=== PATIENT | female | born 2000 | race Two or more races ===

== ENCOUNTER → 2018-09-14 13:58 | Outpatient (CLI) | payer SELFPAY ==
[2018-09-14 16:43] LABS: Chlamydia Trachomatis by PCR Negative (Negative); Neisserai gonorrhoeae by PCR Negative (Negative); Probe Check PASS; Sample Adequacy Control PASS; Specimen Processing Control PASS
== END ==
PROVIDERS: Visit Provider Obstetrics & Gynecology
DX: Z12.4 Encounter for screening for malignant neoplasm of cervix (principal); Z11.3 Encounter for screening for infections with a predominantly sexual mode of transmission
CPT/HCPCS: 87491; 87591; 88175; G0145

== ENCOUNTER → 2018-10-13 11:01 | Outpatient (CLI) | payer SELFPAY ==
[2018-10-13 13:38] LABS: Absolute Lymphocyte Count 1.74 X10^3/ul (0.83-4.51); Absolute Neutrophil Count 8.2 X10^3/uL (2.0-7.7); Basophil# 0.01 X10^3/uL; Basophil% 0.1 % (0-1); Color, Urine Yellow (Yellow); Eosinophil# 0.05 X10^3/uL; Eosinophils% 0.5 % (0-5); Glucose, Dipstick Normal (Normal); Hematocrit 35.2 % (37-47); Hemoglobin 12.2 g/dl (12.0-15.0); Ketone-Dipstick Negative (Negative); Leukocyte Esterase-Dipstick Negative /ul (Negative); Lymphocyte # 1.74 X10^3/ul (4.0); Lymphocyte % 16.5 % (19-41); Mean Corp Hgb Conc 34.7 g/gl (32-36); Mean Corpuscular Volume 92.4 fL (81-99); Mean Platelet Vol. 10.4 fl (6.2-12.0); Monocyte# 0.48 X10^3/uL; Monocyte% 4.6 % (0-10); Neutrophil # 8.22 X10^3/uL (2.7-7.7); Neutrophil % 77.9 % (47-70); Nitrite-Dipstick Negative (Negative); Occult Blood-Urine Negative /ul (Negative); Platelet Count 218 K/mm3 (150-450); Protein-Dipstick Negative (Negative); RBC Distribution Width CV 13.2 % (11.6-14.6); RBC Distribution Width SD 43.9 fl (35.1-43.9); Red Blood Count 3.81 M/mm3 (4.2-5.4); Specific Gravity, Urine 1.015 (1.002-1.030); Urine Bilirubin Dipstick Negative (Negative); Urine Clarity Sl. Cloudy (Clear); Urine Urobilinogen Normal (Normal); Urine pH 6.5 (5.0 - 8.0); White Blood Count 10.5 K/mm3 (4.4-11.0)
[2018-10-13 13:41] LABS: POSITIVE COUNT NO; POSITIVE DIFFERENTIAL NO; POSITIVE MORPHOLOGY NO
[2018-10-13 14:35] LABS: HIV - WCH Non-Reactive (Nonreactive); Rubella IgG 10.4 IU/mL
[2018-10-14 10:45] LABS: HEPATITIS B SURFACE AG Negative (Negative); Hep C Antibodies 0.1 s/co ratio (0.0-0.9)
[2018-10-20 01:10] LABS: Prenatal RPR NONREACTIVE (NONREACTIVE)
--- OUTSIDE RECORDS SUMMARY | 2018-12-17 21:16 | XMS RPT_ITS ---
:2000 External Reference #:[id number] Author Organization OHIP Care Team Providers Name Role Phone Pavithra Craig Attending Unavailable Pavithra Craig Attending Unavailable PROBLEMS PROBLEMS DATE TYPE CONDITION / CODE ATTENDING STATUS SOURCE 10/16/2018 Unknown Z34.81 - Kiara Active [facility] Encounter for [facility] supervision of Hospital other normal Repository , first trimester / Z34.81(ICD-10) PROCEDURES PROCEDURES No Procedure Records FoundRESULTS RESULTS URINALYSIS, ROUTINE Collected: 10/13/2018 Status: F Source: [place] (DIPSTICK) 11:10 AM [facility] REPOSITORY Order Comment: How was Urine Obtained? Urine, Random TYPE CODE TESTS RESULT OUT OF RANGE REFERENCE UNITS LAB L400.3000 Yellow COLOR Normal Yellow LAB L400.3050 Clear Normal CLARITY Sl. Cloudy LAB L400.3200 Normal mg/dl Normal GLUCOSE, UR Normal LAB L400.3300 Negative mg/dL Normal BILIRUBIN URINE Negative LAB L400.3400 Negative mg/dl Normal KETONE UR Negative LAB L400.3465 1.002-1.030 Normal SP.GR. DIPSTX 1.015 LAB L400.3550 5.0 - 8.0 pH UR Normal 6.5 LAB L400.3600 Negative mg/dl PROT Normal DIPSTX Negative LAB L400.3700 Normal mg/dl Normal UROBILI Normal LAB L400.3750 Negative Normal NITRITE UR Negative LAB L400.3780 Negative /ul Normal OCCULT BLOOD-UR Negative LAB L400.3800 Negative /ul LEUK Normal ESTERASE Negative Performed By: #### L400.2010 #### [place] [facility] [address] [place], [place], [address] CBC W/DIFF, AUTOMATED Collected: 10/13/2018 Status: F Source: [place] 11:10 AM [facility] REPOSITORY TYPE CODE TESTS RESULT OUT OF RANGE REFERENCE UNITS LAB L100.1000 4.4-11.0 K/mm3 Normal WBC 10.5 LAB L100.1200 4.2-5.4 M/mm3 Low RBC 3.81 LAB L100.1300 12.0-15.0 g/dl Normal HGB 12.2 LAB L100.1400 37-47 % Low HCT 35.2 LAB L100.1500 81-99 fL Normal MCV 92.4 LAB L100.1600 27.0-32.0 pg Normal MCH 32.0 LAB L100.1700 32-36 g/gl Normal MCHC 34.7 LAB L100.1810 11.6-14.6 % Normal RDW CV 13.2 LAB L100.1820 35.1-43.9 fl Normal RDW SD 43.9 LAB L100.1900 150-450 K/mm3 Normal PLT 218 LAB L100.2000 6.2-12.0 fl Normal MPV 10.4 LAB L100.2100 47-70 % High NEUT% 77.9 LAB L100.2200 19-41 % Low LY% 16.5 LAB L100.2300 0-10 % Normal MONO% 4.6 LAB L100.2400 0-5 % Normal EO% 0.5 LAB L100.2500 0-1 % Normal BASO% 0.1 LAB L100.2550 0.0-0.9 % Normal IM GRAN % 0.400 Result Comment: IG% - Immature Granulocytes (promyelocytes, myelocytes and metamyelocytes) > 1% indicates that a LEFT SHIFT is Present. LAB L100.2620 2.0-7.7 X10 3/uL High Absolute Neut 8.2 LAB L100.2720 0.83-4.51 X10 3/ul Normal Absolute Lymph 1.74 Performed By: #### L100.0100 #### [facility] [address] [place], [place], [address] RUBELLA IGG Collected: 10/13/2018 Status: F Source: [place] 11:10 AM [facility] REPOSITORY TYPE CODE TESTS RESULT OUT OF RANGE REFERENCE UNITS LAB L509.4000 IU/mL Normal Rubella IgG 10.4 Result Comment: Antibody results Interpretation of Immune Status < 5 IU/ml Presumed Non-immune 5 - < 10 IU/ml Equivocal > or = 10 IU/ml Presumed Immune Performed By: #### L509.4000, L3890.6005 #### [facility] [address] [place], [place], [address] HIV - [facility] Collected: 10/13/2018 Status: F Source: [place] 11:10 AM [facility] REPOSITORY TYPE CODE TESTS RESULT OUT OF RANGE REFERENCE UNITS LAB L3890.6005 Nonreactive Normal HIV - [facility] Non-Reactive Performed By: #### L509.4000, L3890.6005 #### [facility] [address] [place], [address] T AND S-NO Collected: 10/13/2018 Status: F Source: [place] CHARGE W/PNP 11:10 AM [facility] REPOSITORY Order Comment: Reason for Type AND Screen/Red Cells: Surgery? N TYPE CODE TESTS RESULT OUT OF RANGE REFERENCE UNITS LAB B10.0800 O Normal BLOOD POSITIVE TYPE GEL LAB B100.4050 Normal Ab SCREEN NEGATIVE GEL Performed By: #### B100.7550 #### [facility] [address] [facility] [place], [place], [address] HEPATITIS B SURFACE Collected: 10/13/2018 Status: F Source: [place] AG 11:10 AM [facility] REPOSITORY TYPE CODE TESTS RESULT OUT OF RANGE REFERENCE UNITS LAB L3100.0400 Negative Normal HB Negative SURF AG Result Comment: Performed at: - [facility] [id number] Mailroom Coordinator: Luigi Lazaro PhD, Phone: [phone] Performed By: #### L3100.0390, L3100.0625 #### [facility] (refer to report for specific site) refer to report for address and phone number HEPATITIS C ANTIBODIES Collected: 10/13/2018 Status: F Source: [place] 11:10 AM [facility] REPOSITORY TYPE CODE TESTS RESULT OUT OF RANGE REFERENCE UNITS LAB L3100.0650 0.0-0.9 s/co ratio Normal HEP C AB 0.1 Result Comment: Negative: < 0.8 Indeterminate: 0.8 - 0.9 Positive: > 0.9 The CDC recommends that a positive HCV antibody result be followed up with a HCV Nucleic Acid Amplification test (626569). Performed By: #### L3100.0390, L3100.0625 #### [facility] (refer to report for specific site) refer to report for address and phone number RPR Collected: 10/13/2018 Status: F Source: [place] 11:10 AM [facility] REPOSITORY TYPE CODE TESTS RESULT OUT OF REFERENCE UNITS RANGE LAB L700.5100 NONREACTIVE Normal RPR NONREACTIVE Performed By: #### L700.5100 #### [facility] [address] [place], [address] CT/NG [facility] BY PCR Collected: 09/14/2018 Status: F Source: [place] 2:04 PM [facility] REPOSITORY TYPE CODE TESTS RESULT OUT OF RANGE REFERENCE UNITS LAB L8200.2100 Negative Normal Chlam Negative Trac PCR LAB L8200.2200 Negative Normal NG by Negative PCR Performed By: #### L8200.2000 #### [facility] [address] [facility] [place], [address] PAP TEST I-G Collected: 09/14/2018 Status: F Source: [place] 2:03 PM [facility] REPOSITORY Order Comment: CYTOLOGY INFORMATION: - CLINICAL INFORMATION: - DATE LMP/MENOPAUSE: 07/10/18 LMP - COLLECTION VIAL: Thin Prep Vial - ADJUSTMENT SUPERVISOR SOURCE: CERVICAL/ENDOCERVICAL - COLLECTION TECHNIQUE: BRUSH/SPATULA Specimen Comment: [id number] Specimen Comment: Source.............Cervix;Endocervix Specimen Comment: LMP / Prev Treat...[id number] Specimen Comment: Other.............. Specimen Comment: No. of containers..01 ThinPrep Vial TYPE CODE TESTS RESULT OUT OF RANGE REFERENCE UNITS LAB L7400.0800 . Normal DIAGN Comment Result Comment: NEGATIVE FOR INTRAEPITHELIAL LESION AND MALIGNANCY. LAB L7400.0900 . Normal ADEQ Comment Result Comment: Satisfactory for evaluation. Endocervical and/or squamous metaplastic cells (endocervical component) are present. LAB L7400.1400 . 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 Normal TEST METHOD Comment Result Comment: This liquid based ThinPrep(R) pap test was screened with the use of an image guided system. Performed at: - [facility] [id number] Mailroom Coordinator: Jenifer Baird MD, Phone: [phone] LAB L9205.5517 . Normal . COMM LAB L7400.2700 . Normal PAPSMR Comment Result Comment: The Pap smear is a screening test designed to aid in the detection of premalignant and malignant conditions of the uterine cervix. It is not a diagnostic procedure and should not be used as the sole means of detecting cervical cancer. Both false-positive and false-negative reports do occur. Performed By: #### L7400.0399 #### [facility] (refer to report for specific site) refer to report for address and phone number ALLERGIES ALLERGIES No Allergies Records FoundENCOUNTERS ENCOUNTERS ADMIT/DISCHARGE ACCOUNT ADMITTING ENCOUNTER LOCATION SOURCE NUMBER CLASS 10/13/2018 [id number] Ambulatory [facility] ing:WOBLAB Repository 09/14/[id number] ing:LABSPEC Repository PAYERS PAYERS ENCOUNTER GUARANTOR PAYER SUBSCRIBER SOURCE 10/13/2018 [place] Primary NOT GIVENUNK [place] [id number] SR Insurance:SELF PAY [address] [address]: Number: Effective Repository Date:2018-10-13 (HP) 09/14/2018 COLL[place] Primary NOT GIVENUNK [place] [id number] STATE Insurance:SELF PAY [address], Number: Effective Repository [place] [id number]: Date:2018-09-14 ()
== END ==
PROVIDERS: Visit Provider Obstetrics & Gynecology
DX: Z34.81 Encounter for supervision of other normal pregnancy, first trimester (principal)
CPT/HCPCS: 36415; 81002; 85025; 86703; 86762; 86803; 87340

== ENCOUNTER 2018-12-18 23:00 | Outpatient (CLI) | payer SELFPAY ==
[2018-12-18 23:46] VITALS: BMI 24.0
[2018-12-18 23:46] LABS: Bacteria 0 SEEN /hpf (None Seen); Mucous, Urine 0 SEEN /hpf (<or=2+); Red Blood Cells-Urine 0 SEEN /hpf (0-5); White Blood Cells 0 SEEN /hpf (0-5)
[2018-12-18 23:50] LABS: Color, Urine Yellow (Yellow); Glucose, Dipstick Normal (Normal); Ketone-Dipstick Negative (Negative); Leukocyte Esterase-Dipstick 25 /ul (Negative); Nitrite-Dipstick Negative (Negative); Occult Blood-Urine Negative /ul (Negative); Protein-Dipstick Negative (Negative); Urine Bilirubin Dipstick Negative (Negative); Urine Clarity Clear (Clear); Urine Urobilinogen Normal (Normal)
[2018-12-18 23:57] LABS: Squamous Epithelial Cells - UA 0-5 SEEN /hpf (5-10)
[2018-12-19 00:06] LABS: ROM Internal Control Test YES-OK TO RESULT pt. (Internal QC); ROM Patient Test Negative (Negative); Record Kit Lot#, ROM+ J7836
[2018-12-19] MEDS: Acetaminophen 500 MG Tablet 1000 MG PO (00:17)
--- NOTE | 2018-12-20 09:46 | OB.TRI.HP_ITS ---
History of Present Illness Was patient seen by the physician?: No Reason For Visit: R/O LABOR Date of Service: 12/18/18 Final ALANNA: 04/16/19 Gestational age: 23 Weeks and 0 Days History of Present Illness: 23-week intrauterine who presents with abdominal pain. Patient denies any bleeding, nausea, contractions. Good movement noted. Allergies No Known Allergies Allergy (Verified 12/18/18 23:49) Laboratory Studies: Laboratory Tests 12/18/18 12/18/18 Range/Units 23:40 23:25 Urine Color Yellow (Yellow) Urine Clarity Clear (Clear) Urine pH 7.0 (5.0 - 8.0) Ur Specific [place] 1.010 (1.002-1.030) Urine Protein Negative (Negative) mg/dl Urine Glucose (UA) Normal (Normal) mg/dl Urine Ketones Negative (Negative) mg/dl Urine Occult Blood Negative (Negative) /ul Urine Nitrite Negative (Negative) Urine Bilirubin Negative (Negative) mg/dL Urine Urobilinogen Normal (Normal) mg/dl Ur Leukocyte Esterase 25 H (Negative) /ul Urine RBC 0 SEEN (0-5) /hpf Urine WBC 0 SEEN (0-5) /hpf Ur Squamous Epith Cells 0-5 SEEN (5-10) /hpf Urine Bacteria 0 SEEN (None Seen) /hpf Urine Mucus 0 SEEN (<or=2+) /hpf Vag Amniotic Fld Detect Negative (Negative) NST - FHR Rate Baby A NST Reactive:: Appropriate for gestational age Impression/Plan 23-week gestation with abdominal pain. No contractions noted on monitor. heart tones appropriate for gestational age. Patient was given Tylenol and over approximately an hour the abdominal pain resolved. Likely ligament pain. Return if pain persists or returns, vaginal bleeding, any other symptoms surface. Otherwise see her physician later this week for an appointment in the office.
== END 2018-12-19 01:22 | disposition home or self-care (01) ==
LOC: WPOUT 23:24 → WP 23:24
PROVIDERS: Family Provider Obstetrics & Gynecology; Visit Provider Obstetrics & Gynecology
DX: O26.892 Other specified pregnancy related conditions, second trimester (principal); R10.9 Unspecified abdominal pain; Z3A.23 23 weeks gestation of pregnancy
CPT/HCPCS: 59025; 59050; 81001; 84112; 99218; G0378

== ENCOUNTER → 2019-01-31 | Outpatient (CLI) | payer SELFPAY ==
[2019-01-31 10:56] LABS: Hematocrit 31.6 % (37-47); Mean Corp Hgb Conc 34.8 g/gl (32-36); Mean Corpuscular Hgb 32.1 pg (27.0-32.0); Mean Corpuscular Volume 92.1 fL (81-99); Mean Platelet Vol. 9.9 fl (6.2-12.0); Platelet Count 196 K/mm3 (150-450); RBC Distribution Width CV 12.1 % (11.6-14.6); RBC Distribution Width SD 38.8 fl (35.1-43.9); Red Blood Count 3.43 M/mm3 (4.2-5.4); White Blood Count 12.3 K/mm3 (4.4-11.0)
[2019-01-31 10:58] LABS: Scan Indicated on CBC? Y/N NO
[2019-01-31 11:11] LABS: Glucose Challenge Gest 1H 50g 114 mg/dL (70-140)
== END | disposition home or self-care (01) ==
LOC: WOBLAB 10:11
PROVIDERS: Visit Provider Obstetrics & Gynecology
DX: Z34.83 Encounter for supervision of other normal pregnancy, third trimester (principal)
CPT/HCPCS: 36415; 82950; 85027

== ENCOUNTER → 2019-03-19 | Outpatient (CLI) | payer SELFPAY | END | disposition home or self-care (01) | LOC: LABSPEC 16:49 | PROVIDERS: Visit Provider Obstetrics & Gynecology | DX: Z36.85 Encounter for antenatal screening for Streptococcus B (principal) | CPT/HCPCS: 87081 ==

== ENCOUNTER 2019-04-15 01:56 | Inpatient (IN) | payer SELFPAY ==
[2019-04-15 02:30] VITALS: BMI 28.8
[2019-04-15] MEDS: 0.9% Saline Lock 10 ML Syringe IV (03:12)
[2019-04-15 03:16] LABS: Absolute Lymphocyte Count 2.47 X10^3/uL (0.83-4.51); Absolute Neutrophil Count 15.9 X10^3/uL (2.0-7.7); Basophil# 0.03 X10^3/uL; Basophil% 0.2 % (0-1); Eosinophil# 0.08 X10^3/uL; Eosinophils% 0.4 % (0-5); Hematocrit 30.4 % (37-47); Hemoglobin 10.3 g/dL (12.0-15.0); Lymphocyte # 2.47 X10^3/ul (4.0); Lymphocyte % 12.4 % (19-41); Mean Corp Hgb Conc 33.9 g/dL (32-36); Mean Corpuscular Hgb 28.9 pg (27.0-32.0); Mean Corpuscular Volume 85.4 fL (81-99); Mean Platelet Vol. 11.3 fl (6.2-12.0); Monocyte# 1.34 X10^3/uL; Monocyte% 6.7 % (0-10); NRBC Flagged by Analyzer 0 % (0-5); Neutrophil # 15.85 X10^3/uL (2.7-7.7); Neutrophil % 79.3 % (47-70); Platelet Count 263 K/mm3 (150-450); RBC Distribution Width CV 13.9 % (11.6-14.6); RBC Distribution Width SD 43.2 fl (35.1-43.9); Red Blood Count 3.56 M/mm3 (4.2-5.4)
[2019-04-15] MEDS: Lactated Ringers 1,000 ML 50 ML IV ×6 (03:35→23:46)
[2019-04-15] MEDS: Nalbuphine 10 MG/ML Ampul IV (04:28)
[2019-04-15] MEDS: fentaNYL-bupivacaine (epidural) 100 ML BAG EPIDURAL ×5 (06:41→21:04)
[2019-04-15] MEDS: Ondansetron 4 MG/2 ML Vial IV (08:38)
--- NOTE | 2019-04-15 08:56 | PCM.HP.OB ---
- Problem List (1) 39 weeks gestation of Status: Acute (2) SROM (spontaneous rupture of membranes) Status: Acute History Date of Admission: 04/15/19 Final ALANNA: 04/16/19 Final ALANNA Source: US <20 weeks Gestational age: 39 Weeks and 6 Days History of this : This is a 19 year-old, G [], P [], at 39 weeks gestational age. Allergies No Known Allergies Allergy (Verified 12/18/18 23:49) Home Medications: Home Medications Prenatabs FA 1 tab PO DAILY 12/18/18 Smoking Status: Never smoker Alcohol: None Number of Fetus(es): 1 Heart Tracin, moderate variability, + accelerations, + variable deceleration TOCO Analysis: 2/10 min History Past Pregnancies: Past Pregnancies Delivery Date Name GA/Weeks Outcome Route Weight Infant Gender Labor Length Anesthesia Delivery Location Provider FOB Labs: Labs 04/15/19 02:30 WBC 20.0 H RBC 3.56 L Hgb 10.3 L Hct 30.4 L MCV 85.4 MCH 28.9 MCHC 33.9 RDW Std Deviation 43.2 RDW Coeff of Christine 13.9 Plt Count 263 MPV 11.3 Immature Gran % (Auto) 1.000 H Neut % (Auto) 79.3 H Lymph % (Auto) 12.4 L Castro % (Auto) 6.7 Eos % (Auto) 0.4 Baso % (Auto) 0.2 Absolute Neuts (auto) 15.9 H Absolute Lymphs (auto) 2.47 Absolute Nucleated RBC 0.00 Nucleated RBC % 0 GBS negative 1h GTT 114 mg/dL RPRP nr HCV Ab neg HBsAg neg O positive/Ab negative Rubella immune HIV NR GC/CT neg/neg PAP NILM Expected Delivery Method: Spontaneous Vaginal Review of Systems Constitutional: Denies: Chills Cardiovascular: Denies: Chest Pain Respiratory: Denies: Shortness of Breath Gastrointestinal: Reports: Nausea. Denies: Vomiting Gynecological: Reports: - - contractions. Denies: Vaginal bleeding Physical Exam Vitals: AVSS General: Alert, Oriented x3, Cooperative, No apparent distress HEENT: Atraumatic, Normocephalic Cardiovascular: Regular rate, Regular Rhythm, Normal S1, Normal S2 Lungs: Normal air movement Abdomen: Soft, Non Tender, Non-Distended, Gravid Neurological: Neuro grossly intact Estimated gestational size: Appropriate for gestational size Presentation: Cephalic Cervix Dilation (cm): 4 Station: 0 Effacement (%): 90 Assessment/Plan All Active Problems 39 weeks gestation of (Acute) SROM (spontaneous rupture of membranes) (Acute) This is a 19 year-old, G [1], P [0], at 39 6/7 weeks gestational age with SROM, Cat II FHR -Progressed from 1 to 4cm spontaneously. -Epidural placed -Reviewed with patient risks/benefits labor and delivery including risks associated with section. Consents signed. -Discussed PPBC - LARC declined. - status overall reassuring -Will continue expectant management
[2019-04-15] MEDS: Acetaminophen 325 MG Tablet PO ×2 (15:17→20:34)
--- NOTE | 2019-04-15 15:46 | PCM.PN.BLA ---
Progress Note LABOR PROGRESS NOTE Wishes baby were here already. Tm/c 102.1 GEN - NAD, AAO x 3 FHR 160, moderate variability, + accelerations, + variable deceleration TOCO 3/10 min SVE 7/90/-1 by my exam, cephalic A/P: 19yo G1 @ 39 6/7wga in labor, Cat II FHR with suspected triple I -APAP given. Ampicillin, Gentamicin ordered. Reviewed with patient indications, r/b abx. -Continue in labor - if cervix unchanged in 1 hour will start pitocin.
[2019-04-15] MEDS: Oxytocin 30 units/NS 500 ml 30 UNITS/500 ML IV.SOLN IV (22:57)
[2019-04-16] VITALS (19 sets, daily range): BP systolic 102–129; BP diastolic 52–86; PULSE 77–107; RESP 12–19; TEMP 36.7–37.7; O2SAT 89–97
--- NOTE | 2019-04-16 01:05 | PCM.PN.BLA ---
Progress Note LABOR PROGRESS NOTE Comfortable with epidural. AVSS GEN - NAD, AAO x 3 FHR 140, moderate variability, + 10 x 10 acecleration, + variable deceleration TOCO 2-3/10 min SVE FD/+1 station, cephalic, BESSIE, asynclitic A/P: 19yo G1 @ 40wga in labor, Cat II FHR -IUPC placed, amnioinfusion started -Will reassess after additional 30 min pushing
--- NOTE | 2019-04-16 01:33 | PCM.PN.BLA ---
Progress Note LABOR PROGRESS NOTE FHR 135, minimal variability, no accelerations, + variable decelerations TOCO 2/10 min SVE 10/+1 station, unchanged from prior, negative Brian Hilary maneuver A/P: 19yo G1 @ 40wga in labor with arrest of descent, Cat II FHR -Maternal repositioning and O2 supplementation -Pushing > 2 hours overall with no change in station and variable decelerations. -Will proceed with C/S. C/S r/b/i reviewed. Pt and spouse given opportunity to ask questions and questions answered to her satisfaction.
[2019-04-16] MEDS: Sodium Citrate/Citric Acid 30 ML UDC PO (01:38)
[2019-04-16] MEDS: Cefazolin 2 GM in 0.9% Normal Saline 100 ML IV (01:45)
[2019-04-16] MEDS: Oxytocin 30 units/NS 500 ml 30 UNITS/500 ML IV.SOLN 167 UNITS IV (02:15)
--- NOTE | 2019-04-16 03:06 | PCM.OPRPT ---
Problem List (1) SROM (spontaneous rupture of membranes) Status: Acute (2) 40 weeks gestation of Status: Acute Delivery Classification: BLANQUITA Final ALANNA: 04/16/19 Final ALANNA Source: US <20 weeks Gestational age: 40 Weeks and 0 Days doctor who attended delivery (if requested by OB): Alannah Pike Indications: 19yo G1 @ 40 weeks gestational age who presented in labor with SROM. She progressed to FD/+1 station without additional descent having a Cat II FHR with variable decelerations. section r/b/i/a were reviewed and patient agreed to proceed. Indications for : Arrrest of Descent Description of Procedure: Patient was taken to the operating room and sign in performed. Vaginal prep performed. Her epidural was found not be adequate however thus general anesthesia was planned. The abdomen was prepped and draped in sterile fashion. The patient was induced under general anesthesia and intubated. A Pfannenstiel incision was made. The rectus muscles were bluntly at the midline and the peritoneum entered bluntly. The peritoneal incision was extended and bladder blade placed into the abdomen. A low transverse hysterotomy was made using Metzenbaum scissors. The hysterotomy was extended bluntly cephalad and caudad. The head was notably asynclitic and OP. The head was elevated and delivered. A nuchal cord x 1 was reduced. A male infant delivered. The cord was doubly clamped and cut and the infant passed to the awaiting nursery personnel and Pediatric Hospitalist. The placenta was expressed from the uterus. The uterus was exteriorized and cleared of debris. The hysterotomy was repaired using 0 Vicryl running locked suture. A second imbricating layer was placed horizontally. There was some oozing at the left apex that was controlled using compression with excellent hemostasis. The posterior culdesac was cleared of debris. Bleeding from bullous serosa on the posterior uterus was controlled using the Bovie. The uterus and adnexa were returned to the abdomen. The bladder blade repositioned and hysterotomy again inspected with hemostasis maintained. The peritoneum was reapproximated using 2-0 Vicryl. The Rectus fascia was reapproximated using 0-Stratafix. Small capillary bleeds in the subcutaneous tissue were electrocoagulated using the Bovie. The subcutaneous tissue and skin were reapproximated with 2-0 Vicry and 4-0 Vicryl, respectively, by the RADIO JOURNALIST under my supervision. Mepilex was placed over the incision. The patient was awakened, extubated and transferred to the recovery room without complication. Sponge and needle counts were correct x 2. Amniotic Membrane Rupture Type: Spontaneous Amniotic Fluid Description: Clear Placenta Disposition: Sent to Pathology Specimen(s) sent to pathology: placenta Drain: Rollins to straight drain Cord Entanglement: Around neck x 1, loose Nuchal Cord Compression: With compression Cord Vessel Description: 3 Vessels Esitmated Blood Loss (ml): 500 Infant Gender: Male (1 minute): 2 (5 minute): 9 Delayed cord clamping: No Pre-op Antibiotic Given: - - Azithromycin 500mg, Ancef 2g Pt instructed on risks of surgery: Bleeding, Anesthesia Risks, Infection, Injury to surrounding structure(s) including bowel and bladder Complications: None - Admit VTE Documentation VTE Present on Admission: No VTE Mechan Device Prophylaxis: SCD's VTE Pharm Prophylaxis ordered?: No
[2019-04-16] MEDS: HYDROmorphone 1 MG/ML Syringe IV ×2 (04:09→07:35)
--- NOTE | 2019-04-16 05:51 | PLAC_PTH ---
PATIENT: COLLIN CHAWLA LOC: WP U#:[id number] AGE/SX: ROOM: [id number] RE04/15/[address]: Dr. Pavithra Hargrove MD : 2000 BED: 2 DIS: 04/19/2019 SPEC #: [id number] RECD: 04/16/19 09:48 STATUS: AMOR NEWMANAna Maria #: [id number] CAR: 04/16/19 05:[address]: Pavithra Cian DEPT: SURGICAL PATHOLOGY RECD BY: Chato Mackey ENTERED: 04/16/19 12:34 SP TYPE: PLACENTA OTHR DR: No Primary Care Phys Tissues: Placenta, NOS Procedures: Surgery Specimen Level V HEADER OPERATION: Primary section PRE-OP DIAGNOSIS: 40 wga, meconium, suspected triple I TISSUE SUBMITTED: Placenta MICROSCOPIC DIAGNOSIS Placenta: Placental disc - third trimester placenta (442 gm). - Focal area of fibrinous exudation (2 cm in greatest dimension). Membranes - moderate to marked acute chorioamnionitis. - Pigment laden macrophages consistent with meconium staining. Umbilical cord - three blood vessels and moderate acute funisitis. SJ:martina 04/18/19 MICROSCOPIC DESCRIPTION Slides are reviewed. GROSS DESCRIPTION SPECIMEN: PLACENTA / CLINICAL INFORMATION: A. Weight: 3.503 kg B. Gestational Age: 40 weeks C. Sex: Male PLACENTAL WEIGHT (POST FIXATION): 442 gm PLACENTAL DIMENSIONS: 16 x 15 x 3.5 cm PLACENTAL SHAPE: Usual ovoid PLACENTAL WEIGHT FOR GESTATIONAL AGE: Within 10-99th percentile MEMBRANES - Present A. Insertion: Marginal B. Site of rupture from edge: 5 cm from edge of placental disc C. Color of membrane: Mancilla-greenish, mucoidy consistent with meconium staining. D. Abnormalities: None UMBILICAL CORD - Present A. Color: Mancilla-ernandez B. Insertion: Paracentral C. Length: 27 cm D. Diameter: 1.1 cm E. Number of vessels: Three F. Abnormalities: None PLACENTAL DISC - Present A. Color of surface: Mancilla-green consistent with meconium staining. B. surface abnormalities: None C. Maternal cotyledons: Intact with minimal tears D. Attached retro placental clot: No clot E. Cut surface: Dark red and spongy F. Lesions: Sections reveal a mancilla, indurated area measuring 2 x 1 x 1 cm. G. Separate clot: Absent SECTIONS SUBMITTED: 1. Membrane roll 2. Cord, maternal end 3. Cord, end 4. Placental disc, and maternal surfaces, lesion 5. Placental disc, and maternal surfaces 6. Placental disc, and maternal surfaces PERRY:martina 04/17/19 TC:2 CPT: 03088
--- NOTE | 2019-04-16 08:35 | PCM.PN.BLA ---
Progress Note Patient seen and without complaints on day of surgery s/p PLTCS. Reports pain controlled and has good appetite, eating breakfast. AVSS, GEN - NAD. Plan routine postop care. .
--- NOTE | 2019-04-16 08:37 | NURSING ---
Patient's nipple cream at the bedside.
--- NOTE | 2019-04-16 08:39 | NURSING ---
Indwelling maldonado catheter present. WNL.
[2019-04-16] MEDS: 0.9% Saline Lock 10 ML Syringe IV ×3 (08:42→20:23)
[2019-04-16] MEDS: Ketorolac 30 MG/ML Syringe IV ×3 (08:42→20:23)
[2019-04-16] MEDS: Senna/Docusate Sodium 1 Tablet PO (08:43)
[2019-04-16] MEDS: Lactated Ringers 1,000 ML 100 ML IV (09:22)
[2019-04-16] MEDS: Acetaminophen 500 MG Tablet 1000 MG PO (10:17)
[2019-04-16] MEDS: oxyCODONE 5 MG Tablet PO ×3 (12:53→23:44)
--- NOTE | 2019-04-16 16:00 | NURSING ---
Ice pack applied.
--- NOTE | 2019-04-16 18:23 | NURSING ---
Patient stood up and ambulated to chair with assistance x2. Tolerated well. Sitting up in chair with breast gel pads. Reports that she feels good sitting in the chair. Incentive spirometry encouraged. Denies further needs at this time.
[2019-04-17 00:20] VITALS: BP 123/73; PULSE 85; RESP 18; TEMP 37.2
[2019-04-17] MEDS: Ketorolac 30 MG/ML Syringe IV ×4 (02:32→20:31)
[2019-04-17] MEDS: 0.9% Saline Lock 10 ML Syringe IV ×4 (02:33→20:31)
[2019-04-17 04:15] VITALS: BP 109/57; PULSE 81; RESP 18; TEMP 37.1
[2019-04-17 04:57] LABS: Hematocrit 26.8 % (37-47); Hemoglobin 9.3 g/dL (12.0-15.0); Mean Corp Hgb Conc 34.7 g/dL (32-36); Mean Corpuscular Hgb 29.3 pg (27.0-32.0); Mean Corpuscular Volume 84.5 fL (81-99); Mean Platelet Vol. 10.7 fl (6.2-12.0); Platelet Count 225 K/mm3 (150-450); RBC Distribution Width CV 14.6 % (11.6-14.6); RBC Distribution Width SD 44.9 fl (35.1-43.9); Red Blood Count 3.17 M/mm3 (4.2-5.4); White Blood Count 25.6 K/mm3 (4.4-11.0)
[2019-04-17] MEDS: Senna/Docusate Sodium 1 Tablet PO (07:07)
[2019-04-17] MEDS: oxyCODONE 5 MG Tablet PO ×4 (07:07→18:57)
--- NOTE | 2019-04-17 08:30 | PCM.PN.OB ---
Patient Problems: Active and Suspected Problems 39 weeks gestation of (Acute) SROM (spontaneous rupture of membranes) (Acute) 40 weeks gestation of (Acute) Subjective: No issues overnight. Pain minimal. OOB. No flatus yet. TOlerates PO. Objective: avss - Physical Exam General: Alert, Oriented x3, Cooperative, No apparent distress HEENT: Atraumatic, Normocephalic Lungs: Clear to auscultation, Normal air movement Cardiovascular: Regular rate, Regular Rhythm, Normal S1, Normal S2 Abdomen: Bowel Sounds Present, Soft, Non Tender, Non-Distended, - - fundus firm and nontender, lochia scant, incisional dressing c/d/i Extremities: No edema, No Calf Tenderness Neurological: Neuro grossly intact Psych/Mental Status: Normal Affect, Appropriate, Alert and oriented to time, place, person, mood and affect Vital Signs Temp Pulse Resp BP Pulse Ox 98.0 F 66 16 112/56 L 97 04/18/19 02:39 04/18/19 02:39 04/18/19 02:39 04/18/19 02:39 04/17/19 20:36 Oxygen Delivery Method Room Air Weight: 66.678 kg Body Mass Index (BMI) 28.8 Intake and Output for Last 24 Hours 04/16/19 04/17/19 04/18/19 23:59 23:59 23:59 Intake Total 4217 / 4217 1500 / 1500 Output Total 4450 / 4450 3550 / 3550 Balance -233 / -233 -2049 / -2049 Medical Necessity - Tobacco Use Smoking Status: Never smoker Assessment/Plan All Active Problems 39 weeks gestation of (Acute) SROM (spontaneous rupture of membranes) (Acute) 40 weeks gestation of (Acute) This is a 19 year-old, G [1], P [1] POD#1 s/p PLTCS doing well. -Rh positive -Routine postop care
[2019-04-17 09:30] VITALS: BP 113/64; PULSE 78; RESP 16; TEMP 36.7
[2019-04-17 13:45] VITALS: BP 117/72; PULSE 74; RESP 16; TEMP 36.9
[2019-04-17 20:36] VITALS: BP 121/64; PULSE 80; RESP 16; TEMP 37; O2SAT 97
[2019-04-18] MEDS: 0.9% Saline Lock 10 ML Syringe IV (02:32)
[2019-04-18] MEDS: Ketorolac 30 MG/ML Syringe IV (02:32)
[2019-04-18 02:39] VITALS: BP 112/56; PULSE 66; RESP 16; TEMP 36.7
[2019-04-18 08:00] VITALS: BP 117/66; PULSE 88; RESP 14; TEMP 36.7
[2019-04-18] MEDS: Naproxen 250 MG Tablet PO (08:55)
--- NOTE | 2019-04-18 09:05 | PCM.PN.OB ---
Patient Problems: Active and Suspected Problems 39 weeks gestation of (Acute) SROM (spontaneous rupture of membranes) (Acute) 40 weeks gestation of (Acute) Subjective: Patient without complaints. Tolerating diet well. Positive flatus. Tenderness less today than yesterday. Minimal vaginal bleeding. Baby needs to stay until tomorrow. - Physical Exam Vital Signs Temp Pulse Resp BP Pulse Ox 98.0 F 66 16 112/56 L 97 04/18/19 02:39 04/18/19 02:39 04/18/19 02:39 04/18/19 02:39 04/17/19 20:36 Oxygen Delivery Method Room Air Weight: 147 lb Body Mass Index (BMI) 28.8 Intake and Output for Last 24 Hours 04/16/19 04/17/19 04/18/19 23:59 23:59 23:59 Intake Total 4217 / 4217 1500 / 1500 Output Total 4450 / 4450 3550 / 3550 Balance -233 / -233 -2049 / -2049 Wound covered with Mepilex dressing but without any bleeding noted on pad. Hemoglobin okay. White count slightly elevated. Medical Necessity - Tobacco Use Smoking Status: Never smoker Assessment/Plan All Active Problems 39 weeks gestation of (Acute) SROM (spontaneous rupture of membranes) (Acute) 40 weeks gestation of (Acute) Doing well postoperative day #2 status post primary section. Continuing present care. Will repeat CBC tomorrow to confirm white count is dropping.
[2019-04-18] MEDS: oxyCODONE 5 MG Tablet PO ×2 (13:23→22:21)
[2019-04-18 13:24] VITALS: BP 117/72; PULSE 67; RESP 12; TEMP 36.5; O2SAT 99
--- NOTE | 2019-04-18 19:47 | DCINST_ITS ---
Discharge Diet: No Restrictions Discharge Activity: Return to Normal Activity, May Shower May resume sexual activity in: 4-6 weeks Lifting Restrictions: 10 lb Suture Line Care: Avoid Pulling/Pushing Cleanse incision/area with: Soap & Water Additional Instructions: If you experience any of the following, contact your healthcare provider. * Bleeding that soaks a pad every hour for 2 hours * Fever 100.4 or higher * Unrelieved incision or abdominal pain * Swelling, redness, discharge or bleeding from your incision or episiotomy site * Your incision begins to separate * Problems urinating (including inability to urinate or burning while urinating). * Visual changes * Severe headache * Flu-like symptoms * Pain or redness in one of both of your breasts * Pain, warmth, tenderness or swelling in your legs, especially the calf area * Frequent nausea and vomiting * Symptoms of depression or anxiety If you experience any of the following, call 911 or go to the nearest Emergency Room. * Chest pain * Problems breathing * Seizure activity * Partial or complete paralysis of a body part, slurred speech, weakness or drooping of the face, or a sudden inability to walk or hold your balance Allergies/Adverse Reactions: Allergies No Known Allergies Allergy (Verified 12/18/18 23:49) Medications to take at Discharge Prenatabs FA 1 tab PO DAILY 12/18/18 Naproxen [Naprosyn] 1 - 2 tab PO Q12H PRN #30 tab 04/18/19 Oxycodone [Oxyir] 1 - 2 tab PO Q6H PRN PRN 7 Days #20 tab 04/18/19 Senna/Docusate Sodium [Senokot-S] 1 - 2 tab PO DAILY PRN #60 tab 04/18/19 The following prescriptions were given: Naproxen [Naprosyn] 1 - 2 tab PO Q12H PRN #30 tab PRN Reason: Mild Pain (1-12/03) [id number] Oxycodone [Oxyir] 1 - 2 tab PO Q6H PRN PRN 7 Days #20 tab PRN Reason: Mod-Severe Pain (-07/05) Transmission Status: [id number] Senna/Docusate Sodium [Senokot-S] 1 - 2 tab PO DAILY PRN #60 tab PRN Reason: Constipation Transmission Status: Received by [id number] Follow-Up: Call to make an appointment with your doctor for an incision check in 1-2 weeks. You will also need a 6 week post- follow up appointment. Test results from this visit will be discussed in further detail at your follow- up appointment, if applicable. Please Follow Up With: Pavithra Craig MD When: 1-2 weeks Primary Care Physician: Care Physician,No Primary [Primary Care Provider] -
--- NOTE | 2019-04-18 19:47 | PCM.DCCSEC ---
Discharge Diet: No Restrictions Discharge Activity: Return to Normal Activity, May Shower May resume sexual activity in: 4-6 weeks Lifting Restrictions: 10 lb Suture Line Care: Avoid Pulling/Pushing Cleanse incision/area with: Soap & Water Additional Instructions: If you experience any of the following, contact your healthcare provider. Bleeding that soaks a pad every hour for 2 hours Fever 100.4 or higher Unrelieved incision or abdominal pain Swelling, redness, discharge or bleeding from your incision or episiotomy site Your incision begins to separate Problems urinating (including inability to urinate or burning while urinating). Visual changes Severe headache Flu-like symptoms Pain or redness in one of both of your breasts Pain, warmth, tenderness or swelling in your legs, especially the calf area Frequent nausea and vomiting Symptoms of depression or anxiety If you experience any of the following, call 911 or go to the nearest Emergency Room. Chest pain Problems breathing Seizure activity Partial or complete paralysis of a body part, slurred speech, weakness or drooping of the face, or a sudden inability to walk or hold your balance Allergies/Adverse Reactions: Allergies No Known Allergies Allergy (Verified 12/18/18 23:49) Medications to take at Discharge Prenatabs FA 1 tab PO DAILY 12/18/18 Naproxen [Naprosyn] 1 - 2 tab PO Q12H PRN #30 tab 04/18/19 Oxycodone [Oxyir] 1 - 2 tab PO Q6H PRN PRN 7 Days #20 tab 04/18/19 Senna/Docusate Sodium [Senokot-S] 1 - 2 tab PO DAILY PRN #60 tab 04/18/19 The following prescriptions were given: Naproxen [Naprosyn] 1 - 2 tab PO Q12H PRN #30 tab PRN Reason: Mild Pain (1-12/03) Transmission Status: Received by [facility] Oxycodone [Oxyir] 1 - 2 tab PO Q6H PRN PRN 7 Days #20 tab PRN Reason: Mod-Severe Pain (-07/05) Transmission Status: Received by [facility] Senna/Docusate Sodium [Senokot-S] 1 - 2 tab PO DAILY PRN #60 tab PRN Reason: Constipation Transmission Status: Received by [facility] Follow-Up: Call to make an appointment with your doctor for an incision check in 1-2 weeks. You will also need a 6 week post- follow up appointment. Test results from this visit will be discussed in further detail at your follow-up appointment, if applicable. Please Follow Up With: Pavithra Craig MD When: 1-2 weeks Primary Care Physician: Care Physician,No Primary [Primary Care Provider] -
[2019-04-18 22:20] VITALS: BP 147/68; PULSE 79; RESP 16; TEMP 36.6; O2SAT 99
[2019-04-19 02:30] VITALS: BP 126/72; PULSE 72; RESP 16; TEMP 36.6
[2019-04-19 04:45] LABS: Absolute Lymphocyte Count 2.31 X10^3/uL (0.83-4.51); Absolute Neutrophil Count 9.8 X10^3/uL (2.0-7.7); Absolute Nucleated RBC Count 0.02 10^3/uL (0-5); Basophil# 0.03 X10^3/uL; Basophil% 0.2 % (0-1); Eosinophil# 0.46 X10^3/uL; Eosinophils% 3.4 % (0-5); Hematocrit 25.7 % (37-47); Hemoglobin 8.7 g/dL (12.0-15.0); Lymphocyte # 2.31 X10^3/ul (4.0); Lymphocyte % 16.9 % (19-41); Mean Corp Hgb Conc 33.9 g/dL (32-36); Mean Corpuscular Volume 85.7 fL (81-99); Mean Platelet Vol. 10.2 fl (6.2-12.0); Monocyte# 0.83 X10^3/uL; Monocyte% 6.1 % (0-10); NRBC Flagged by Analyzer 0.1 % (0-5); Neutrophil # 9.81 X10^3/uL (2.7-7.7); Neutrophil % 71.7 % (47-70); Platelet Count 232 K/mm3 (150-450); RBC Distribution Width CV 14.4 % (11.6-14.6); RBC Distribution Width SD 44.8 fl (35.1-43.9); White Blood Count 13.7 K/mm3 (4.4-11.0)
--- NOTE | 2019-04-19 07:51 | PN.OBGYN_ITS ---
Patient Problems: Active and Suspected Problems delivery delivered (Acute) 39 weeks gestation of (Acute) SROM (spontaneous rupture of membranes) (Acute) 40 weeks gestation of (Acute) Subjective: Had bowel movement x 2. Ambulating without difficulty. Reports a rash on sides of abdomen. Denies fever, chills, itching. Objective: AVSS - Physical Exam General: Alert, Oriented x3, Cooperative, No apparent distress HEENT: Atraumatic, Normocephalic Lungs: Normal air movement Cardiovascular: Regular rate, Regular Rhythm, Normal S1, Normal S2 Abdomen: Soft, Non Tender, Non-Distended, - - Fundus firm and nontender, incisional dressing c/d/i; fine papular eruption confined to abdomen with mild erythema Extremities: No edema, No Calf Tenderness Neurological: Neuro grossly intact Psych/Mental Status: Normal Affect, Appropriate, Alert and oriented to time, place, person, mood and affect Vital Signs Temp Pulse Resp BP Pulse Ox 97.9 F 72 16 126/72 H 99 04/19/19 02:30 04/19/19 02:30 04/19/19 02:30 04/19/19 02:30 04/18/19 22:20 Oxygen Delivery Method Room Air Weight: 66.678 kg Body Mass Index (BMI) 28.8 Intake and Output for Last 24 Hours 04/17/19 04/18/19 04/19/19 23:59 23:59 23:59 Intake Total 1500 / 1500 Output Total 3550 / 3550 Balance -2049 / -2049 Laboratory Tests Past 24 Hrs 04/19/19 04:30 WBC 13.7 H RBC 3.00 L Hgb 8.7 L Hct 25.7 L MCV 85.7 MCH 29.0 MCHC 33.9 RDW Std Deviation 44.8 H RDW Coeff of Christine 14.4 Plt Count 232 MPV 10.2 Immature Gran % (Auto) 1.700 H Neut % (Auto) 71.7 H Lymph % (Auto) 16.9 L [place] % (Auto) 6.1 Eos % (Auto) 3.4 Baso % (Auto) 0.2 Absolute Neuts (auto) 9.8 H Absolute Lymphs (auto) 2.31 Absolute Nucleated RBC 0.02 Nucleated RBC % 0.1 Medical Necessity - Tobacco Use Smoking Status: Never smoker Assessment/Plan All Active Problems delivery delivered (Acute) 39 weeks gestation of (Acute) SROM (spontaneous rupture of membranes) (Acute) 40 weeks gestation of (Acute) This is a 19 year-old, G [1], P [1] POD#3 s/p PLTCS doing well. -Rh positive -Routine postop care -d/c to hotel -Infant in special care nursery
--- NOTE | 2019-04-19 11:19 | CASEMGMT ---
Social Work Brief Assessment--Labor and Delivery Unit Date or Referral/Notification: 04/19/19 Time of Referral: 10:00am Referred by: RN Reason for referral: Concern regarding finances as pt is listed as self pay Date of Intervention: 04/19/19 Time of Intervention: 11:15am Informant: RN and patient Assessment: SW spoke w/UZIEL in special care nursery, MOB baby, seems appropriate w/care. SW inquired about financial situation if MOB has any questions as she is listed as self pay. MOB states they have shared [employer] insurance, where they pay and get reimbursed. She states that they prepaid, and she understands that they need to pay the difference since she had a . She states their insurance will then reimburse them. She states that she is not sure about the baby however. She states she knows she just needs to call the insurance company, just has not done so as of yet. She plans to do this to see how it will work for coverage for the baby. MOB denies any further questions regarding the financial situation--states knows what to do she just has not done it yet. MOB denies any additional concerns regarding the baby. SW remains available should any additional needs arise. MOB did ask about results of testing, SW spoke w/RN who will go over this w/MOB. Plan: MOB to be discharged today, baby still in SCN not yet ready for discharge. When baby ready, to go home w/parents. No further needs at this time. MAXINE Fay
[2019-04-19 13:24] LABS: Pathology Specimen OB SEE PATHOLOGY REPORT
[2019-04-19 14:00] VITALS: BP 127/77; PULSE 78; RESP 16; TEMP 36.7; O2SAT 98
--- NOTE | 2019-04-25 15:45 | NURSING ---
No answer on follow up phone call left voicemail
--- NOTE | 2019-04-26 13:32 | PCM.DC.SUM ---
Discharge Date and Diagnosis Date of Admission: 04/15/19 Date of Discharge: 04/19/19 Hospital Course and Treatment Operations: - - Low transverse section Summary of Care Provided: The patient is a 19 year old F 1 admitted at 39 6/7 weeks gestation with SROM. She progressed to full dilated and received antibiotics for chorioamnionitis in labor. A section for performed for arrest of descent. The patient had an unremarkable postoperative course and was discharged to home on post-operative day #3. - Physical Exam Vital Signs Temp Pulse Resp BP Pulse Ox 98.0 F 78 16 127/77 H 98 04/19/19 14:00 04/19/19 14:00 04/19/19 14:00 04/19/19 14:00 04/19/19 14:00 Oxygen Delivery Method Room Air Weight: 66.678 kg Body Mass Index (BMI) 28.8 Discharge Diet: No Restrictions Discharge Activity: Return to Normal Activity, May Shower May resume sexual activity in: 4-6 weeks Suture Line Care: Avoid Pulling/Pushing Cleanse incision/area with: Soap & Water Home Medications: Medications to take at Discharge Prenatabs FA 1 tab PO DAILY 12/18/18 Naproxen [Naprosyn] 1 - 2 tab PO Q12H PRN #30 tab 04/18/19 Oxycodone [Oxyir] 1 - 2 tab PO Q6H PRN PRN 7 Days #20 tab 04/18/19 Senna/Docusate Sodium [Senokot-S] 1 - 2 tab PO DAILY PRN #60 tab 04/18/19 Following Prescrptions Were Given to Patient: Naproxen [Naprosyn] 1 - 2 tab PO Q12H PRN #30 tab PRN Reason: Mild Pain (1-3/10) Transmission Status: Received by [id number] Oxycodone [Oxyir] 1 - 2 tab PO Q6H PRN PRN 7 Days #20 tab PRN Reason: Mod-Severe Pain (4-10/10) Transmission Status: Received by [id number] Senna/Docusate Sodium [Senokot-S] 1 - 2 tab PO DAILY PRN #60 tab PRN Reason: Constipation Transmission Status: Received by [facility] Primary Care Physician: Care Physician,No Primary [Primary Care Provider] - Please Follow Up With: Pavithra Craig MD When: 1-2 weeks Medical Necessity - Tobacco Use Smoking Status: Never smoker Meaningful Use Info Meaningful Use Diagnoses (Choose all that apply): None applicable
== END 2019-04-19 14:30 | disposition home or self-care (01) | DRG 788 ==
PROVIDERS: Obstetrics & Gynecology; Admitting Provider Obstetrics & Gynecology; Referring Provider Obstetrics & Gynecology; Visit Provider Obstetrics & Gynecology
DX: O62.1 Secondary uterine inertia (principal); Z3A.40 40 weeks gestation of pregnancy; Z37.0 Single live birth; O76 Abnormality in fetal heart rate and rhythm complicating labor and delivery; O69.81X0 Labor and delivery complicated by cord around neck, without compression, not applicable or unspecified; R21 Rash and other nonspecific skin eruption
CPT/HCPCS: 59025; 59050; 82803; 85025; 85027; 86850; 86900; 88307; 99218; J7050; J7120; A4216; G0378; J2405

== ENCOUNTER 2019-06-20 03:35 | Inpatient (IN) | payer OTHER, SELFPAY ==
[2019-06-20] VITALS (14 sets, daily range): BP systolic 100–146; BP diastolic 46–98; PULSE 58–118; RESP 16–18; TEMP 36.6–37.7; O2SAT 92–100; BMI 22.6; BMI 22.7
--- NOTE | 2019-06-20 03:51 | CT_ITS ---
STUDY: CT ABDOMEN AND PELVIS WITH CONTRAST REASON FOR EXAM: Female, 19 years old. Right upper quadrant pain and vomiting RADIATION DOSAGE (If Supplied By Facility): CTDIvol = ( 10.48 ) mGy, DLP = ( 366.95 ) mGycm TECHNIQUE: Transaxial images were obtained from the dome of the diaphragm to the symphysis pubis without oral contrast. Oral and amp; IV Gastrografin and amp; 100mL Isovue-300 100ML was administered. Sagittal and coronal images were reconstructed. Individualized dose optimization techniques were used for this CT. COMPARISON: None. FINDINGS: There is linear right basilar subsegmental atelectasis.. The visualized portions of the heart are within normal limits. Normal liver. The gallbladder has somewhat contracted. There is possible gallbladder wall enhancement.. Normal spleen. Normal pancreas. Normal bilateral adrenal glands. Normal right kidney. Normal left kidney. There is a left retroaortic renal vein. Normal visualized stomach. Normal small intestine. There is mild to moderate colonic fecal load within the sigmoid colon.. The appendix is visualized and appears normal. Normal abdominal aorta. Normal inferior vena cava. Normal retroperitoneum. There is mild bladder wall thickening of the bladder is incompletely distended. Normal abdominal wall. Normal osseous structures. CT/Abdomen/Pelvis WITH Contrast IMPRESSION: Minimal linear right basilar subsegmental atelectasis The gallbladder is somewhat contracted. There is possible gallbladder wall enhancement. Correlation with physical exam and clinical history is recommended. Right upper quadrant ultrasound would be recommended to exclude acute or chronic cholecystitis Mild to moderate colonic fecal load within the sigmoid colon Mild bladder wall thickening, incomplete distention versus cystitis Electronically Signed: Remy Sanchez, at 6:13 EDT Tel , Service support ,
--- NOTE | 2019-06-20 03:52 | ED.DCSUM_ITS ---
History of Present Illness Chief Complaint: Abd Pain Narrative: Patient is a 19-year-old female who presents with abdominal pain. She has been having abdominal pain since last Tuesday, 5 days ago. Her pain is in the right upper quadrant. It waxes and wanes. It usually lasts about 2 hours at a time. She states 3 days ago on Tuesday she vomited for most of the day. Her current episode of pain began about 2 hours ago. It is sharp. Her pain is actually improving and she currently has mild pain. She did have 3 episodes of non- bloody nonbilious emesis today. She had diarrhea with the onset of symptoms but is no longer having diarrhea. She denies fevers. She saw her primary care physician who felt this was most likely related to her gallbladder and she is scheduled for right upper quadrant ultrasound on Tuesday. Past Medical History - Allergies and Home Meds Allergies/Adverse Reactions: Allergies No Known Allergies Allergy (Verified 06/20/19 04:14) Primary Care Physician: Care Physician,No Primary [Primary Care Provider] - Past Medical History: - - Noncontributory Surgical History: - - section Smoking Status: Never smoker Review of Systems All systems negative except as indicated General: Denies: Fever Cardiovascular: Denies: Chest pain Respiratory: Denies: Dyspnea Gastrointestinal: Reports: Abdominal pain, Nausea, Vomiting, Diarrhea Physical Exam Vital Signs/Narrative: Vital Signs Temp Pulse Resp BP Pulse Ox 06/20/19 03:37 97.8 F 77 16 115/71 98 Inital Vital Signs reviewed: Yes General: Well nourished Head: Normocephalic, Atraumatic Eyes: EOMI ENT: Moist mucous membranes Neck: Supple Cardiovascular: Regular rate, Regular rhythm Respiratory: No distress, CTA bilaterally Abdomen: Soft, - - Patient is tender along the right abdomen both upper and lower quadrants as well as epigastrium. Her pain actually seems to be greatest in the right lower quadrant however. She does not have guarding she does not have rebound she does not have a Abraham's sign Skin: Normal color Neurological: Alert Psychological: Normal affect Diagnostic/Tx/Re-eval Impressions Abdomen/Pelvis CT 06/20/19 03:51 IMPRESSION: Minimal linear right basilar subsegmental atelectasis The gallbladder is somewhat contracted. There is possible gallbladder wall enhancement. Correlation with physical exam and clinical history is recommended. Right upper quadrant ultrasound would be recommended to exclude acute or chronic cholecystitis Mild to moderate colonic fecal load within the sigmoid colon Mild bladder wall thickening, incomplete distention versus cystitis Electronically Signed: Remy Sanchez, at 6:13 EDT Tel , Service support , 06/20/19 03:51 Abdomen/Pelvis WITH Contrast [CT] Stat 06/20/19 06:17 Gallbladder [US] Stat Laboratory Results 06/20/19 06/20/19 06/20/19 03:56 03:56 05:04 WBC 9.6 RBC 4.71 Hgb 13.4 Hct 39.3 MCV 83.4 MCH 28.5 MCHC 34.1 RDW Std Deviation 51.0 H RDW Coeff of Christine 17.0 H Plt Count 330 MPV 9.8 Immature Gran % (Auto) 0.400 Neut % (Auto) 74.5 H Lymph % (Auto) 17.2 L [place] % (Auto) 6.9 Eos % (Auto) 0.7 Baso % (Auto) 0.3 Absolute Neuts (auto) 7.1 Absolute Lymphs (auto) 1.65 Nucleated RBC % 0 Sodium 143 Potassium 3.6 Chloride 108 H Carbon Dioxide 25.0 Anion Gap 10 BUN 7 Creatinine 0.71 Estim Creat Clear Calc 94.58 Est GFR (MDRD) Af Amer 134 Est GFR (MDRD) Non-Af 111 BUN/Creatinine Ratio 9.9 L Glucose 103 Calcium 9.7 Total Bilirubin 4.10 H AST 178 H ALT 367 H Alkaline Phosphatase 372 H Total Protein 7.9 Albumin 4.0 Globulin 3.9 Albumin/Globulin Ratio 1.0 Lipase 138 Urine Color Urine Clarity Urine pH Ur Specific [place] Urine Protein Urine Glucose (UA) Urine Ketones Urine Occult Blood Urine Nitrite Urine Bilirubin Urine Urobilinogen Ur Leukocyte Esterase Urine RBC Urine WBC Ur Squamous Epith Cells Urine Bacteria Urine Mucus Urine Test Negative 06/20/19 05:04 WBC RBC Hgb Hct MCV MCH MCHC RDW Std Deviation RDW Coeff of Christine Plt Count MPV Immature Gran % (Auto) Neut % (Auto) Lymph % (Auto) [place] % (Auto) Eos % (Auto) Baso % (Auto) Absolute Neuts (auto) Absolute Lymphs (auto) Nucleated RBC % Sodium Potassium Chloride Carbon Dioxide Anion Gap BUN Creatinine Estim Creat Clear Calc Est GFR (MDRD) Af Amer Est GFR (MDRD) Non-Af BUN/Creatinine Ratio Glucose Calcium Total Bilirubin AST ALT Alkaline Phosphatase Total Protein Albumin Globulin Albumin/Globulin Ratio Lipase Urine Color Fide Urine Clarity Clear Urine pH 6.0 Ur Specific [place] 1.015 Urine Protein 15 H Urine Glucose (UA) Normal Urine Ketones 15 H Urine Occult Blood Negative Urine Nitrite Negative Urine Bilirubin 3 H Urine Urobilinogen 8 H Ur Leukocyte Esterase 25 H Urine RBC 0 SEEN Urine WBC 0 SEEN Ur Squamous Epith Cells 5-10 SEEN Urine Bacteria 0 SEEN Urine Mucus 0 SEEN Urine Test - Medical Decision Making Patient was treated with IV fluids, Toradol, Zofran. She did have significant improvement of symptoms. Given the patient has diffuse right-sided abdominal tenderness both upper and lower and ultrasound is not immediately available I felt CT of the abdomen was the most appropriate initial study. Laboratory evaluation and imaging as above notable for hyperbilirubinemia as well as elevated transaminases. There is questionable gallbladder wall enhancement on CT. We will obtain right upper quadrant ultrasound this morning to further evaluate. Patient will be signed out to the oncoming physician pending ultrasound results. Even if this does not show findings consistent with acute cholecystitis patient will likely need hospitalization given laboratory abnormalities. During the patient's course here her pain and nausea began to return so she was given morphine and another dose of Zofran. ED Disposition - Plan for ED Patient: Disposition: Acute Care Hospital [facility] Diagnosis: Right sided abdominal pain, Hyperbilirubinemia, Transaminitis Referrals: Care Physician,No Primary [Primary Care Provider] -
[2019-06-20] MEDS: Ondansetron 4 MG/2 ML Vial IV ×3 (04:01→19:21)
[2019-06-20] MEDS: 0.9% Normal Saline 1,000 ML 1000 ML IV (04:01)
[2019-06-20] MEDS: Ketorolac 30 MG/ML Syringe IV (04:01)
[2019-06-20 04:15] LABS: Absolute Lymphocyte Count 1.65 X10^3/uL (0.83-4.51); Absolute Neutrophil Count 7.1 X10^3/uL (2.0-7.7); Basophil# 0.03 X10^3/uL; Basophil% 0.3 % (0-1); Eosinophil# 0.07 X10^3/uL; Eosinophils% 0.7 % (0-5); Hematocrit 39.3 % (37-47); Hemoglobin 13.4 g/dL (12.0-15.0); Lymphocyte # 1.65 X10^3/ul (4.0); Lymphocyte % 17.2 % (19-41); Mean Corp Hgb Conc 34.1 g/dL (32-36); Mean Corpuscular Hgb 28.5 pg (27.0-32.0); Mean Corpuscular Volume 83.4 fL (81-99); Mean Platelet Vol. 9.8 fl (6.2-12.0); Monocyte# 0.66 X10^3/uL; Monocyte% 6.9 % (0-10); NRBC Flagged by Analyzer 0 % (0-5); Neutrophil # 7.14 X10^3/uL (2.7-7.7); Neutrophil % 74.5 % (47-70); Platelet Count 330 K/mm3 (150-450); Red Blood Count 4.71 M/mm3 (4.2-5.4); White Blood Count 9.6 K/mm3 (4.4-11.0)
[2019-06-20 04:18] LABS: AST(SGOT) 178 U/L (15-37); Alanine Aminotransfer ALT/SGPT 367 U/L (13-56); Alkaline Phosphatase 372 U/L (45-117); Anion Gap 10 (5-15); BUN 7 mg/dL (7-18); BUN/Creat Ratio 9.9 RATIO (10-20); Calcium,Total 9.7 mg/dL (8.5-10.1); Chloride 108 mmol/L (98-107); Creatinine, Serum 0.71 mg/dL (0.55-1.02); EST Glomerular Filtration Rate 111 mL/min (>60); Est Glom Filt Rate - Afr Amer 134 mL/min (>60); Estimated Creatinine Clearance 94.58 ml/min; Globulin 3.9 g/dL (2.2-4.2); Glucose 103 mg/dL (74-106); Lipase 138 U/L (73-393); Potassium 3.6 mmol/L (3.5-5.1); Protein, Total 7.9 g/dL (6.4-8.2); Sodium Level 143 mmol/L (136-145)
[2019-06-20 05:11] LABS: Bacteria 0 SEEN /hpf (None Seen); Mucous, Urine 0 SEEN /hpf (<or=2+); Red Blood Cells-Urine 0 SEEN /hpf (0-5); White Blood Cells 0 SEEN /hpf (0-5)
[2019-06-20 05:12] LABS: Color, Urine Amber (Yellow); Glucose, Dipstick Normal (Normal); Ketone-Dipstick 15 mg/dl (Negative); Leukocyte Esterase-Dipstick 25 /ul (Negative); Nitrite-Dipstick Negative (Negative); Occult Blood-Urine Negative /ul (Negative); Protein-Dipstick 15 mg/dl (Negative); Specific Gravity, Urine 1.015 (1.002-1.030); Urine Clarity Clear (Clear); Urine Urobilinogen 8 mg/dl (Normal)
[2019-06-20 05:21] LABS: Internal QC Validated? YES +Cl - CLEAR BKGD; Pregnancy, Urine Negative Negative; Squamous Epithelial Cells - UA 5-10 SEEN /hpf (5-10); Urine Bilirubin Dipstick 3 mg/dL (Negative)
--- NOTE | 2019-06-20 06:17 | US_ITS ---
STUDY: ABDOMINAL ULTRASOUND - RIGHT UPPER QUADRANT REASON FOR VISIT: Female, 19 years old . Right upper quadrant pain. TECHNIQUE: Ultrasound evaluation of the right upper quadrant was performed with real-time and static ernandez-scale imaging. TECHNICAL QUALITY: Adequate. COMPARISON: None. FINDINGS: Liver: The liver measures 13.3 cm. There is normal echogenicity of the liver. The bile ducts are within normal limits. There is hepatic color flow. The direction of portal flow is hepatopetal. There is no demonstrated mass lesion. Gallbladder: Normal distended gallbladder. The gallbladder wall measures 2.6 mm. There is a positive sonographic Abraham's sign. There is no pericholecystic fluid. There are multiple echogenic structures within the gallbladder, consistent with multiple gallstones. Sludge is also seen in the gallbladder lumen. Common Bile Duct (C.B.D.): The common bile duct is slightly dilated and measures 8.2 mm. Pancreas: Normal size of the head, body and tail of the pancreas. There is normal echogenicity of the pancreas. There is no demonstrated pancreatic mass or cyst. Right Kidney: Normal size of the right kidney. The right kidney measures 10.7 cm x 5.6 cm x 3.2 cm. Normal renal cortex. The right cortex measures 1.6 cm. There is no demonstrated renal mass or cyst. There is no right hydronephrosis. US/Abdomen Limited IMPRESSION: Multiple gallstones. Mild dilatation of the common bile duct. Electronically Signed: Yovany Sheikh, at 8:47 EDT , Service support ,
[2019-06-20] MEDS: Morphine 4 MG/ML Syringe IV ×3 (07:29→20:44)
--- NOTE | 2019-06-20 11:09 | PCM.HP.STD ---
Problem List (1) Acute obstructive cholangitis Status: Acute (2) Acute cholecystitis Status: Acute History of Present Illness Date of Admission: 06/20/19 Chief Complaint: Right upper quadrant pain. Obstructive jaundice. The patient is a 19 year old F who presents with a 5 day history of right upper quadrant pain radiating into her right back. Patient is 9 weeks . She noted at 23 weeks similar symptoms. She notes her previous symptoms have not been this severe. She noted on Tuesday she had pizza and following this she had right upper quadrant/epigastric pain. She started flu-like symptoms on Tuesday with nausea, vomiting multiple times and abdominal pain. She noted this continued into Tuesday. On Tuesday she was evaluated by her PCP who recommended a RUQ u/s on Tuesday. Patient noted in the middle of last night she developed more severe epigastric pain. She has had decreased appetite. She also noted blood in her urine and discomfort with urination. She noted having a for delivery which was uncomplicated. Patient did have general anesthesia for this procedure secondary to her epidural failing. She denies complications with anesthesia. She denies previous cardiac history. She is currently . Past Medical History Allergies No Known Allergies Allergy (Verified 06/20/19 04:14) Home Medications: Ambulatory Orders Medication Instructions Recorded NK 06/20/19 Surgical History: - - section Psychiatric History: No pertinent psych hx Lives: Spouse/ Significant Other Smoking Status: Never smoker Tobacco Use: Non-smoker - *Family History Maternal History Items: No pertinent history Paternal History Items: No pertinent history Review of Systems Constitutional: Reports: Anorexia. Denies: Chills, Fever, Weight Change HEENT: Denies: Head Aches, Sinus Congestion, Sinus Drainage Cardiovascular: Denies: Chest Pain, Palpitations Respiratory: Denies: Cough, Shortness of breath at rest, Sputum production Gastrointestinal: Reports: Abdominal Pain, Nausea Genitourinary: Reports: Dysuria, Hematuria Musculoskeletal: Denies: Joint Pain, Joint Tenderness Skin: Reports: Jaundice Neurological: Denies: Numbness, Tingling, Focal weakness Psychiatric: Denies: Anxiety, Depression, Homicidal Ideations, Suicidal Ideations Hematologic/ Lymphatic: Denies: Easy Bruising, Easy Bleeding VTE Information - Inpt Only VTE Present on Admission: Yes VTE Mechan Device Prophylaxis: SCD's Patient Problems: Active and Suspected Problems Right sided abdominal pain (Acute) Hyperbilirubinemia (Acute) Transaminitis (Acute) Acute obstructive cholangitis (Acute) Acute cholecystitis (Acute) - Physical Exam General: Alert, Oriented x3, Cooperative HEENT: Atraumatic, PERRLA, EOMI, Normocephalic Neck: Supple, No JVD, Negative Carotid Bruits Lungs: Clear to auscultation, Normal air movement Cardiovascular: Regular rate, No murmurs Abdomen: Soft, Hypoactive Bowel Sounds, Tender - RUQ/epigastric region, - - Nicely healed incision Extremities: No edema, Capillary Refill Less than 3 Seconds Skin: No rashes, No breakdown Musculoskeletal: No Tenderness to Palpation of Joints or Extremities Neurological: Neuro grossly intact Psych/Mental Status: Normal Affect, Appropriate Vital Signs Temp Pulse Resp BP Pulse Ox 97.9 F 58 L 16 121/67 H 99 06/20/19 10:42 06/20/19 10:42 06/20/19 10:42 06/20/19 10:42 06/20/19 10:42 Oxygen Delivery Method Room Air Weight: 120 lb 5.958 oz Body Mass Index (BMI) 22.7 Intake and Output for Last 24 Hours 06/18/19 06/19/19 06/20/19 23:59 23:59 23:59 Intake Total 1000 / 1000 Balance 1000 / 1000 Laboratory Tests Past 24 Hrs 06/20/19 06/20/19 06/20/19 03:56 03:56 05:04 WBC 9.6 RBC 4.71 Hgb 13.4 Hct 39.3 MCV 83.4 MCH 28.5 MCHC 34.1 RDW Std Deviation 51.0 H RDW Coeff of Christine 17.0 H Plt Count 330 MPV 9.8 Immature Gran % (Auto) 0.400 Neut % (Auto) 74.5 H Lymph % (Auto) 17.2 L Snyder % (Auto) 6.9 Eos % (Auto) 0.7 Baso % (Auto) 0.3 Absolute Neuts (auto) 7.1 Absolute Lymphs (auto) 1.65 Nucleated RBC % 0 Sodium 143 Potassium 3.6 Chloride 108 H Carbon Dioxide 25.0 Anion Gap 10 BUN 7 Creatinine 0.71 Estim Creat Clear Calc 94.58 Est GFR (MDRD) Af Amer 134 Est GFR (MDRD) Non-Af 111 BUN/Creatinine Ratio 9.9 L Glucose 103 Calcium 9.7 Total Bilirubin 4.10 H AST 178 H ALT 367 H Alkaline Phosphatase 372 H Total Protein 7.9 Albumin 4.0 Globulin 3.9 Albumin/Globulin Ratio 1.0 Lipase 138 Urine Color Urine Clarity Urine pH Ur Specific Jackson Urine Protein Urine Glucose (UA) Urine Ketones Urine Occult Blood Urine Nitrite Urine Bilirubin Urine Urobilinogen Ur Leukocyte Esterase Urine RBC Urine WBC Ur Squamous Epith Cells Urine Bacteria Urine Mucus Urine Test Negative 06/20/19 05:04 WBC RBC Hgb Hct MCV MCH MCHC RDW Std Deviation RDW Coeff of Christine Plt Count MPV Immature Gran % (Auto) Neut % (Auto) Lymph % (Auto) Snyder % (Auto) Eos % (Auto) Baso % (Auto) Absolute Neuts (auto) Absolute Lymphs (auto) Nucleated RBC % Sodium Potassium Chloride Carbon Dioxide Anion Gap BUN Creatinine Estim Creat Clear Calc Est GFR (MDRD) Af Amer Est GFR (MDRD) Non-Af BUN/Creatinine Ratio Glucose Calcium Total Bilirubin AST ALT Alkaline Phosphatase Total Protein Albumin Globulin Albumin/Globulin Ratio Lipase Urine Color Fide Urine Clarity Clear Urine pH 6.0 Ur Specific Jackson 1.015 Urine Protein 15 H Urine Glucose (UA) Normal Urine Ketones 15 H Urine Occult Blood Negative Urine Nitrite Negative Urine Bilirubin 3 H Urine Urobilinogen 8 H Ur Leukocyte Esterase 25 H Urine RBC 0 SEEN Urine WBC 0 SEEN Ur Squamous Epith Cells 5-10 SEEN Urine Bacteria 0 SEEN Urine Mucus 0 SEEN Urine Test Assessment/Plan All Active Problems Right sided abdominal pain (Acute) Hyperbilirubinemia (Acute) Transaminitis (Acute) Acute obstructive cholangitis (Acute) Acute cholecystitis (Acute) delivery delivered (Acute) 39 weeks gestation of (Acute) SROM (spontaneous rupture of membranes) (Acute) 40 weeks gestation of (Acute) I am seeing this patient in conjunction with Dr. Grant Impression: Acute cholecystitis with obstructive jaundice Plan: Discussed patient with Dr. Grant. Dr. Grant will plan to perform an Endoscopic retrograde cholangiopancreatography with possible stent placement. Dr. Grant will discuss with the patient also about a cholecystectomy possible tomorrow. Procedure details, risks and benefits have been explained to the patient. We will proceed with the ERCP today around 1:45. Patient and her have had the opportunity to ask and have questions answered. Patient verbally understands and agrees with the plan. Thank you for allowing us to participate in this patient's care. Code Visit Office Visits / Consults: [id number] IP Consult L3
[2019-06-20] MEDS: Lactated Ringers 1,000 ML 100 ML IV ×3 (11:46→18:01)
--- NOTE | 2019-06-20 12:51 | NURSING ---
This RN called report to SHILPI Aguirre in [place].
--- NOTE | 2019-06-20 13:30 | RAD_ITS ---
CLINICAL HISTORY: Female, 19 years old. Gallstones and dilated CBD. PROCEDURE: ERCP FLUOROSCOPY TIME (if supplied): (17:12) minutes/seconds TECHNIQUE: 7 procedural images were presented for interpretation. COMPARISON: Abdominal ultrasound, June 20, 2019. CT of the abdomen and pelvis, June 20, 2019 FINDINGS: A study demonstrates an endoscope in the duodenum with cannulization CBD. There is vague contrast enhancement without obvious dilatation. There is evidence of cannulization on the pancreatic duct that appears to be a small air bubble. Please refer to the operative report for further details. RAD/ERCP Biliary Only IMPRESSION: ERCP in the OR. Electronically Signed: Rob Jaimes DO at 17:08 EDT Tel [phone], Service support ,
--- NOTE | 2019-06-20 13:45 | GALL_PTH ---
PATIENT: COLLIN CHAWLA LOC: PCU U#:[id number] AGE/SX: 19/F ROOM: [id number] RE06/23/[address]: Dr. Misael Grant MD : 2000 BED: 1 DIS: 06/27/2019 SPEC #: [id number] RECD: 06/22/19 08:26 STATUS: AMOR JAYCEE #: [id number] CAR: 06/20/19 13:[address]: Misael Grant DEPT: SURGICAL PATHOLOGY RECD BY: Rosalio Michael ENTERED: 06/22/19 09:19 SP TYPE: ADOLFO NIX DR: No Primary Care Phys Tissues: Gallbladder, NOS Procedures: Surgery Specimen Level III HEADER OPERATION: Laparoscopic cholecystectomy with IOC PRE-OP DIAGNOSIS: Acute cholecystitis with obstructive jaundice TISSUE SUBMITTED: Gallbladder MICROSCOPIC DIAGNOSIS Gallbladder, cholecystectomy: Chronic cholecystitis, cholelithiasis and focal cholesterolosis. SJ:martina 06/25/19 MICROSCOPIC DESCRIPTION Slides are reviewed. GROSS DESCRIPTION Received is one container labeled with the patient's name and designated gallbladder. The specimen consists of a gallbladder measuring 10.5 x 3 x 3 cm. The external surface is smooth and glistening. Focally, it is granular, hemorrhagic and contains cautery artifact. The lumen of the gallbladder contains greenish mucoid bile and multiple mulberry calculi light mancilla in color and averaging 0.3 cm. The mucosa is bile-stained and without any mass lesions. The gallbladder wall averages 0.2 cm in thickness and is free of mass lesions. Devops Developer sections of the gallbladder and the cystic duct are submitted in one cassette. / AM:martina 06/22/19 TC:3 CPT: 59216
--- NOTE | 2019-06-20 16:50 | PCM.OPRPT ---
Problem List (1) Obstructive jaundice Status: Acute Report of Operation Date of Procedure: 06/20/19 Pre-Operative Diagnosis: Obstructive jaundice Post-Operative Diagnosis: Choledocholithiasis Surgery/Procedure Performed:: ERCP Description of Procedure: The patient was brought back to the operating room and general anesthesia was induced. The patient was placed in a semi-prone position. The side-viewing scope was placed into the mouth and down into the duodenum. The ampulla was identified. It was very difficult to cannulate the common bile duct. The pancreatic duct was cannulated several times. The common bile duct was able to be cannulated and it did appear dilated with a filling defect. The access to the common bile duct was lost trying to adjust the sphincterotome. After several attempts I was unable to recannulate the common bile duct. I attempted to place a 5 [place] Citizen pancreatic duct stent but this became dislodged due to the sticking of the wire from the contrast. The patient was given rectal indomethacin and a bolus of fluid. The patient was awoken and taken to PACU. Attempt will be made tomorrow for laparoscopic cholecystectomy with possible bile duct exploration. - Admit VTE Documentation VTE Mechan Device Prophylaxis: SCD's
[2019-06-20] MEDS: 0.9% NaCl Peripheral Flush Adult/Peds IV (19:21)
[2019-06-20 20:16] LABS: Lipase 2954 U/L (73-393)
[2019-06-21] VITALS (12 sets, daily range): BP systolic 104–134; BP diastolic 57–85; PULSE 63–94; RESP 16–20; TEMP 36.7–37.3; O2SAT 92–99; BMI 22.7
[2019-06-21] MEDS: Lactated Ringers 1,000 ML 100 ML IV ×3 (02:00→20:36)
[2019-06-21] MEDS: Morphine 4 MG/ML Syringe IV ×3 (03:00→17:39)
[2019-06-21 05:43] LABS: Absolute Lymphocyte Count 1.77 X10^3/uL (0.83-4.51); Absolute Neutrophil Count 10.6 X10^3/uL (2.0-7.7); Basophil# 0.01 X10^3/uL; Basophil% 0.1 % (0-1); Eosinophil# 0.01 X10^3/uL; Eosinophils% 0.1 % (0-5); Hematocrit 35.6 % (37-47); Hemoglobin 11.8 g/dL (12.0-15.0); Lymphocyte # 1.77 X10^3/ul (4.0); Lymphocyte % 13.2 % (19-41); Mean Corp Hgb Conc 33.1 g/dL (32-36); Mean Corpuscular Hgb 28.4 pg (27.0-32.0); Mean Corpuscular Volume 85.6 fL (81-99); Mean Platelet Vol. 9.9 fl (6.2-12.0); Monocyte# 0.96 X10^3/uL; Monocyte% 7.1 % (0-10); NRBC Flagged by Analyzer 0 % (0-5); Neutrophil # 10.63 X10^3/uL (2.7-7.7); Neutrophil % 79.1 % (47-70); Platelet Count 254 K/mm3 (150-450); RBC Distribution Width CV 16.6 % (11.6-14.6); RBC Distribution Width SD 51.8 fl (35.1-43.9); Red Blood Count 4.16 M/mm3 (4.2-5.4); White Blood Count 13.4 K/mm3 (4.4-11.0)
--- NOTE | 2019-06-21 05:55 | EKG12_ITS ---
Test Reason : AM EKG Blood Pressure : / mmHG Vent. Rate : 074 BPM Atrial Rate : 074 BPM P-R Int : 168 ms QRS Dur : 086 ms QT Int : 390 ms P-R-T Axes : 049 031 049 degrees QTc Int : 432 ms Normal sinus rhythm Nonspecific T wave abnormality Abnormal ECG No previous ECGs available Confirmed by ROGELIO MAXWELL ([id number]), editor at large SHORTY MONK ([id number]) on 07/03/2019 1:31:05 PM Referred By: Misael Grant Confirmed By:ROGELIO MAXWELL
[2019-06-21 06:09] LABS: ALB/GLOB Ratio 1.1 RATIO (0.9-2.4); AST(SGOT) 84 U/L (15-37); Alanine Aminotransfer ALT/SGPT 231 U/L (13-56); Albumin, Serum 3.3 g/dL (3.2-5.0); Alkaline Phosphatase 299 U/L (45-117); Anion Gap 15 (5-15); BUN 10 mg/dL (7-18); BUN/Creat Ratio 13.6 RATIO (10-20); Calcium,Total 8.5 mg/dL (8.5-10.1); Chloride 112 mmol/L (98-107); Creatinine, Serum 0.74 mg/dL (0.55-1.02); EST Glomerular Filtration Rate 105 mL/min (>60); Est Glom Filt Rate - Afr Amer 128 mL/min (>60); Estimated Creatinine Clearance 90.75 ml/min; Glucose 61 mg/dL (74-106); Lipase 8273 U/L (73-393); Potassium 4.2 mmol/L (3.5-5.1); Protein, Total 6.3 g/dL (6.4-8.2); Sodium Level 146 mmol/L (136-145)
[2019-06-21] MEDS: Ondansetron 4 MG/2 ML Vial IV (08:37)
--- NOTE | 2019-06-21 09:19 | PN.SURG_ITS ---
Patient Problems: Active and Suspected Problems Right sided abdominal pain (Acute) Hyperbilirubinemia (Acute) Transaminitis (Acute) Acute obstructive cholangitis (Acute) Acute cholecystitis (Acute) Obstructive jaundice (Acute) Subjective: Patient still complaining of right upper quadrant pain - Physical Exam General: Alert, Oriented x3 Neck: No JVD Lungs: Normal air movement Cardiovascular: Regular rate, Regular Rhythm Abdomen: Soft, Non-Distended, Tender Vital Signs Temp Pulse Resp BP Pulse Ox 98.6 F 63 18 128/73 H 98 06/21/19 08:17 06/21/19 08:17 06/21/19 08:17 06/21/19 08:17 06/21/19 08:17 Oxygen Delivery Method Room Air Weight: 120 lb 5.958 oz Body Mass Index (BMI) 22.7 Intake and Output for Last 24 Hours 06/19/19 06/20/19 06/21/19 23:59 23:59 23:59 Intake Total 3050 / 3050 848.33 / 848.33 Balance 3050 / 3050 848.33 / 848.33 Laboratory Tests Past 24 Hrs 06/20/19 06/21/19 06/21/19 19:45 05:15 05:15 WBC 13.4 H RBC 4.16 L Hgb 11.8 L Hct 35.6 L MCV 85.6 MCH 28.4 MCHC 33.1 RDW Std Deviation 51.8 H RDW Coeff of Christine 16.6 H Plt Count 254 MPV 9.9 Immature Gran % (Auto) 0.400 Neut % (Auto) 79.1 H Lymph % (Auto) 13.2 L Weber % (Auto) 7.1 Eos % (Auto) 0.1 Baso % (Auto) 0.1 Absolute Neuts (auto) 10.6 H Absolute Lymphs (auto) 1.77 Nucleated RBC % 0 Sodium 146 H Potassium 4.2 Chloride 112 H Carbon Dioxide 19.0 L Anion Gap 15 BUN 10 Creatinine 0.74 Estim Creat Clear Calc 90.75 Est GFR (MDRD) Af Amer 128 Est GFR (MDRD) Non-Af 105 BUN/Creatinine Ratio 13.6 Glucose 61 L Calcium 8.5 Total Bilirubin 2.00 H AST 84 H ALT 231 H Alkaline Phosphatase 299 H Total Protein 6.3 L Albumin 3.3 Globulin 3.0 Albumin/Globulin Ratio 1.1 Lipase 2954 H 8273 H Medical Necessity - Tobacco Use Smoking Status: Never smoker Tobacco Use: Non-smoker Assessment/Plan All Active Problems Right sided abdominal pain (Acute) Hyperbilirubinemia (Acute) Transaminitis (Acute) Acute obstructive cholangitis (Acute) Acute cholecystitis (Acute) Obstructive jaundice (Acute) delivery delivered (Acute) 39 weeks gestation of (Acute) SROM (spontaneous rupture of membranes) (Acute) 40 weeks gestation of (Acute) 19-year-old female with obstructive jaundice and choledocholithiasis 1. Patient underwent attempted ERCP yesterday. I was unable to cannulate the common bile duct to remove the stone. Patient did get postoperative pancreatitis as well. Her lipase was elevated yesterday and more elevated this morning. 2. I discussed her situation with her and her . I discussed that the choledocholithiasis is still present. I also did inform them of the postoperative pancreatitis and sequelae of pancreatitis. I recommend proceeding today with laparoscopic cholecystectomy. I informed her that I would perform cholangiograms and plan for laparoscopic duct exploration. If the duct is unable to be dilated and the stone removed laparoscopically I would convert to rendezvous technique ERCP. I informed her that I would place a guidewire into the common bile duct and meet this through the ERCP scope in the duodenum and perform a stent durotomy stone removal that way. I explained her of the risks of the procedure today. I explained the risks of bleeding, infection, perforation of the bile duct or bowel, injury to surrounding organs such as the liver, bile duct, bowel. The patient understands all the risks as well to proceed with lap scopic cholecystectomy and possible ERCP today. Misael Grant MD Pager: [facility] [address] [place] [address] [address] [place] [address] Office:
--- NOTE | 2019-06-21 10:35 | NURSING ---
Patient left unit for surgery
--- NOTE | 2019-06-21 11:30 | RAD_ITS ---
STUDY: INTRAOPERATIVE CHOLANGIOGRAM. REASON FOR EXAM: Female, 19 years old. Laparoscopic cholecystectomy. FLUOROSCOPY TIME (if supplied): (2:33) minutes/seconds. 8 images were submitted. TECHNIQUE: Intraoperative cholangiogram was performed by the surgeon. Imaging was submitted. A guidewire is seen entering the common bile duct via the cystic duct. Mild dilatation of the common bile duct. 2 small filling defects are seen in the distal portion of the common bile duct. One appears to be a bubble and the other one possibly a small stone. Contrast is seen within the duodenum. COMPARISON: None. FINDINGS: Mildly dilated common bile duct with a filling defect in the distal portion of the duct suggestive of a small calculus. RAD/Cholangiogram/ O R,Initial IMPRESSION: Mildly dilated common bile duct with filling defect in the distal portion suggestive of a small retained calculus. Electronically Signed: Yovany Sheikh, at 8:01 EDT , Service support ,
--- NOTE | 2019-06-21 12:00 | RAD_ITS ---
STUDY: INTRAOPERATIVE INTRA CHOLANGIOGRAM. REASON FOR EXAM: Female, 19 years old. Laparoscopic cholecystectomy. FLUOROSCOPY TIME (if supplied): (0:50) minutes/seconds. 3 cine runs were performed. TECHNIQUE: And intraoperative quadrant was performed by the surgeon. Contrast was injected. There is opacification of the intrahepatic biliary ducts. These are unremarkable. COMPARISON: None. FINDINGS: Intrahepatic biliary ducts are unremarkable. Mild dilatation of the common bile duct. Free flow of contrast into the duodenum. RAD/Cholangiogram O.R./Subsequent IMPRESSION: Mild residual dilatation of the common bile duct. No intraluminal filling defects are seen at this time. Free flow of contrast into the duodenum. Electronically Signed: Yovany Sheikh, at 8:03 EDT , Service support ,
[2019-06-21] MEDS: Glucagon 1 MG/ML Syringe (13:20)
[2019-06-21] MEDS: Bupivacaine Mpf 0.5% 30 ML VIAL (14:00)
--- NOTE | 2019-06-21 15:36 | OP.PCM_ITS ---
Problem List (1) Obstructive jaundice Status: Acute Report of Operation Date of Procedure: 06/21/19 Pre-Operative Diagnosis: Choledocholithiasis Post-Operative Diagnosis: 1. Acute cholecystitis. 2. Choledocholithiasis Surgery/Procedure Performed:: 1. Laparoscopic cholecystectomy with cholangiogram. 2. Laparoscopic common bile duct exploration mattress finisher: Remy Carbajal Specimen's removed: Gallbladder and contents Description of Procedure: The patient was brought back to the operating room and general anesthesia was induced. The abdomen was prepped and draped in usual sterile fashion. A small midline incision was made superior to the umbilicus and deepened to the fascia. The fascia was elevated and incised and the port was placed under direct visualization into the abdomen. The abdomen was then insufflated to 15 mmHg. The abdomen was inspected. There was some ascites from her pancreatitis. A skin incision was made in the subxiphoid space and a 5 mm port was placed under direct visualization. 2 right upper quadrant 5 mm ports were also placed under direct utilization. The gallbladder was elevated and the dissection was carried inferiorly to the infundibulum. The infundibulum was dissected free and the cystic artery and duct were identified. Cystic artery was clipped. The cystic duct was clamped proximally. Next a laparoscopic duct exploration was performed. Another right upper quadrant small skin incision was made and the cholangiogram catheter was placed through the dilator and into the right upper quadrant. The catheter was placed into the cystic duct opening and an angled Glidewire was advanced through this and into the cystic duct and into the common bile duct under direct visualization. The catheter was then advanced and cholangiogram was performed. There was no contrast advancing into the duodenum. At this time the guidewire was deeply cannulated into the duodenum and the cath eter was removed. Over the guidewire a choledocho balloon was advanced. This was advanced to the area of the ampulla. The 6 [place] balloon was then inflated under fluoroscopy visualization. There was a pinched area in the middle that appeared to be the ampulla. This distended nicely with glucagon and pressure. Next the balloon was desufflated and removed and the catheter was placed back into the common bile duct. Contrast was instilled. No filling defects were noted. The guidewire was then retracted and removed and the catheter was used once more to perform a cholangiogram which showed good filling of the duodenum with a good taper of the common bile duct with no filling defects. Catheter was then removed. 3 clips were placed along the cystic duct remnant and 2 clips were placed across the cystic artery. These were both divided. Electrocautery was used to take the gallbladder off of the gallbladder fossa. The gallbladder was then placed into an Endo Catch bag. The gallbladder fossa and cystic duct stump were then inspected and irrigated and suctioned. There appeared to be no bile leaking or bleeding. The abdomen was copiously irrigated and suctioned. The bladder fossa and stumps were once again inspected and appeared to be hemostatic with no bile or blood leaking. The ports were removed under direct visualization in the gallbladder and Endo Catch bag removed through the umbilical incision. The umbilical fascia was closed with a [id number] 0 Vicryl suture. All of the incisions were anesthetized with lidocaine. The incisions were then closed with interrupted 4-0 Monocryl sutures and Steri- Strips and bandages. Patient tolerated the procedure well was brought to PACU in stable condition. - Admit VTE Documentation VTE Present on Admission: No VTE Mechan Device Prophylaxis: SCD's
[2019-06-21] MEDS: Acetaminophen 325 MG Tablet 650 MG PO (19:54)
[2019-06-21] MEDS: 0.9% NaCl Peripheral Flush Adult/Peds IV (23:06)
[2019-06-22] VITALS (7 sets, daily range): BP systolic 108–120; BP diastolic 56–76; PULSE 83–95; RESP 16–18; TEMP 36.8–37.4; O2SAT 93–98
[2019-06-22] MEDS: Acetaminophen 325 MG Tablet 650 MG PO ×4 (01:54→21:33)
[2019-06-22] MEDS: Lactated Ringers 1,000 ML 100 ML IV ×2 (05:43→15:07)
[2019-06-22 06:31] LABS: Absolute Lymphocyte Count 1.29 X10^3/uL (0.83-4.51); Absolute Neutrophil Count 14.4 X10^3/uL (2.0-7.7); Basophil# 0.03 X10^3/uL; Basophil% 0.2 % (0-1); Eosinophil# 0.01 X10^3/uL; Eosinophils% 0.1 % (0-5); Hematocrit 34.4 % (37-47); Hemoglobin 11.5 g/dL (12.0-15.0); Lymphocyte # 1.29 X10^3/ul (4.0); Lymphocyte % 7.7 % (19-41); Mean Corp Hgb Conc 33.4 g/dL (32-36); Mean Corpuscular Hgb 28.9 pg (27.0-32.0); Mean Corpuscular Volume 86.4 fL (81-99); Mean Platelet Vol. 9.8 fl (6.2-12.0); Monocyte# 1.04 X10^3/uL; Monocyte% 6.2 % (0-10); NRBC Flagged by Analyzer 0 % (0-5); Neutrophil # 14.38 X10^3/uL (2.7-7.7); Neutrophil % 85.5 % (47-70); Platelet Count 244 K/mm3 (150-450); RBC Distribution Width CV 17.2 % (11.6-14.6); RBC Distribution Width SD 54.9 fl (35.1-43.9); Red Blood Count 3.98 M/mm3 (4.2-5.4); White Blood Count 16.8 K/mm3 (4.4-11.0)
[2019-06-22 07:01] LABS: ALB/GLOB Ratio 0.9 RATIO (0.9-2.4); AST(SGOT) 65 U/L (15-37); Alanine Aminotransfer ALT/SGPT 174 U/L (13-56); Albumin, Serum 3.1 g/dL (3.2-5.0); Alkaline Phosphatase 250 U/L (45-117); Anion Gap 15 (5-15); BUN 6 mg/dL (7-18); BUN/Creat Ratio 7.7 RATIO (10-20); Calcium,Total 8.4 mg/dL (8.5-10.1); Chloride 109 mmol/L (98-107); Creatinine, Serum 0.78 mg/dL (0.55-1.02); EST Glomerular Filtration Rate 100 mL/min (>60); Est Glom Filt Rate - Afr Amer 120 mL/min (>60); Estimated Creatinine Clearance 86.09 ml/min; Globulin 3.3 g/dL (2.2-4.2); Glucose 69 mg/dL (74-106); Lipase 8005 U/L (73-393); Potassium 4.2 mmol/L (3.5-5.1); Protein, Total 6.4 g/dL (6.4-8.2); Sodium Level 141 mmol/L (136-145)
--- NOTE | 2019-06-22 07:37 | PCM.PN.SRG ---
Patient Problems: Active and Suspected Problems Right sided abdominal pain (Acute) Hyperbilirubinemia (Acute) Transaminitis (Acute) Acute obstructive cholangitis (Acute) Acute cholecystitis (Acute) Obstructive jaundice (Acute) Subjective: Patient reports that she is still having epigastric pain but it is well controlled on Tylenol. She says that when it is under control it is only 3 out of 10. She is not having any nausea or vomiting. She is not passing any flatus. - Physical Exam General: Alert, Oriented x3 Neck: No JVD Lungs: Normal air movement Cardiovascular: Regular rate, Regular Rhythm Abdomen: Soft, Non-Distended, Tender - Tender in the epigastric and right upper quadrant Vital Signs Temp Pulse Resp BP Pulse Ox 99.3 F H 86 16 111/60 97 06/22/19 02:00 06/22/19 02:00 06/22/19 02:00 06/22/19 02:00 06/22/19 02:00 Oxygen Delivery Method Room Air Weight: 120 lb 5.958 oz Body Mass Index (BMI) 22.7 Intake and Output for Last 24 Hours 06/20/19 06/21/19 06/22/19 23:59 23:59 23:59 Intake Total 3050 / 3050 3320.00 / 3320.00 673.33 / 673.33 Output Total 550 / 550 1150 / 1150 Balance 3050 / 3050 2770.00 / 2770.00 -476.67 / -476.67 Laboratory Tests Past 24 Hrs 06/22/19 06/22/19 06:06 06:06 WBC 16.8 H RBC 3.98 L Hgb 11.5 L Hct 34.4 L MCV 86.4 MCH 28.9 MCHC 33.4 RDW Std Deviation 54.9 H RDW Coeff of Christine 17.2 H Plt Count 244 MPV 9.8 Immature Gran % (Auto) 0.300 Neut % (Auto) 85.5 H Lymph % (Auto) 7.7 L Iron % (Auto) 6.2 Eos % (Auto) 0.1 Baso % (Auto) 0.2 Absolute Neuts (auto) 14.4 H Absolute Lymphs (auto) 1.29 Nucleated RBC % 0 Sodium 141 Potassium 4.2 Chloride 109 H Carbon Dioxide 17.0 L Anion Gap 15 BUN 6 L Creatinine 0.78 Estim Creat Clear Calc 86.09 Est GFR (MDRD) Af Amer 120 Est GFR (MDRD) Non-Af 100 BUN/Creatinine Ratio 7.7 L Glucose 69 L Calcium 8.4 L Total Bilirubin 1.50 H AST 65 H ALT 174 H Alkaline Phosphatase 250 H Total Protein 6.4 Albumin 3.1 L Globulin 3.3 Albumin/Globulin Ratio 0.9 Lipase 8005 H Medical Necessity - Tobacco Use Smoking Status: Never smoker Tobacco Use: Non-smoker Assessment/Plan All Active Problems Right sided abdominal pain (Acute) Hyperbilirubinemia (Acute) Transaminitis (Acute) Acute obstructive cholangitis (Acute) Acute cholecystitis (Acute) Obstructive jaundice (Acute) delivery delivered (Acute) 39 weeks gestation of (Acute) SROM (spontaneous rupture of membranes) (Acute) 40 weeks gestation of (Acute) 19-year-old female status post laparoscopic cholecystectomy 1. Patient's LFTs continue to decrease. Patient has post ERCP pancreatitis. Her lipase is around the same as it was yesterday. She is still having epigastric pain. She also has a postoperative ileus. She is not passing any flatus yet. Continue sips of water until she starts passing flatus. Continue Zosyn as she did have acute cholecystitis as well. Will stop Zosyn when WBC is downtrending. 2. SCDs, PPI, Lovenox. Pain control. IV fluids and sips of water. Misael Grant MD Pager: [facility] [address] [place] [address], [address] [place] [phone] Office:
[2019-06-22] MEDS: Pantoprazole Sodium 40 MG Tablet PO (10:10)
[2019-06-22] MEDS: Enoxaparin 40 MG/0.4 ML Syringe SC (10:11)
--- NOTE | 2019-06-22 14:51 | PCM.DC.SUM ---
Discharge Date and Diagnosis - Problem List Patient Problems: Active and Suspected Problems Right sided abdominal pain (Acute) Hyperbilirubinemia (Acute) Transaminitis (Acute) Acute obstructive cholangitis (Acute) Acute cholecystitis (Acute) Obstructive jaundice (Acute) Date of Admission: 06/20/19 Date of Discharge: 06/27/19 - Primary Discharge Diagnosis Active and Suspected Problems Right sided abdominal pain (Acute) Hyperbilirubinemia (Acute) Transaminitis (Acute) Acute obstructive cholangitis (Acute) Acute cholecystitis (Acute) Obstructive jaundice (Acute) Hospital Course and Treatment Imaging Results: Clinical Impression(s) from Imaging Studies Abdomen/Pelvis CT 06/20/19 03:51 IMPRESSION: Minimal linear right basilar subsegmental atelectasis The gallbladder is somewhat contracted. There is possible gallbladder wall enhancement. Correlation with physical exam and clinical history is recommended. Right upper quadrant ultrasound would be recommended to exclude acute or chronic cholecystitis Mild to moderate colonic fecal load within the sigmoid colon Mild bladder wall thickening, incomplete distention versus cystitis Electronically Signed: Remy Sanchez at 6:13 EDT Tel , Service support , Abdomen Ultrasound 06/20/19 06:17 IMPRESSION: Multiple gallstones. Mild dilatation of the common bile duct. Electronically Signed: Yovany Sheikh, at 8:47 EDT , Service support , ERCP X-Ray 06/20/19 13:30 IMPRESSION: ERCP in the OR. Electronically Signed: Rob Jaimes DO at 17:08 EDT Tel [phone], Service support , Cholangiogram 06/21/19 11:30 IMPRESSION: Mildly dilated common bile duct with filling defect in the distal portion suggestive of a small retained calculus. Electronically Signed: Yovany Sheikh, at 8:01 EDT , Service support , Cholangiogram,Operative 06/21/19 12:00 IMPRESSION: Mild residual dilatation of the common bile duct. No intraluminal filling defects are seen at this time. Free flow of contrast into the duodenum. Electronically Signed: Yovany Aguilar, at 8:03 EDT , Service support , Chest X-Ray 06/23/19 22:27 IMPRESSION: Small bilateral pleural effusions. Mild left basilar opacity, possibly atelectasis versus infiltrate. at 2257 Reported and signed by: Devi Staley MD Electronically Signed: Devi Staley MD at 22:57 EDT Tel , Service support , Abdomen/Pelvis CT 06/24/19 09:19 IMPRESSION: 1. Status post cholecystectomy. Mildly lobulated soft tissue density in the gallbladder fossa may be a small postsurgical hematoma. 2. Small volume ascites, predominantly in the lower abdomen. 3. Elongated, crescent-shaped low density consistent with evolving post operative hematoma/seroma in the tissue planes between the oblique muscles of the right lateral abdominal wall. Probable postsurgical change/hematoma also seen within the subcutis tissues of the anterior abdominal wall just above the umbilicus. 4. Small dependent bilateral pleural effusions now present. There is minor atelectasis in the left lung base. 5. The bowel is unremarkable without sign of obstruction. Incidental note of splenic flexure interpose beneath the left diaphragm anterior to the left lobe of the liver. Electronically Signed: Sylvester Purdy MD at 15:17 EDT , Service support , Operations: cholecystecomy, ERCP, - - Low transverse section Summary of Care Provided: The patient is a 19 year old F presented with biliary obstruction due to gallstone. She underwent a very complicated ERCP and postoperatively developed pancreatitis. She was taken the following day for laparoscopic cholecystectomy with laparoscopic common duct exploration and removal of stone. After this procedure her hospitalization was centered around her pancreatitis. She was very slow to restart a diet and when she did restart her diet this flared her pancreatitis back up. She was started back on clears and was able to tolerate clears and will be discharged home and clear liquid diet. She will follow-up with me next week and we will advance her diet as an outpatient. Patient Problems: Active and Suspected Problems Right sided abdominal pain (Acute) Hyperbilirubinemia (Acute) Transaminitis (Acute) Acute obstructive cholangitis (Acute) Acute cholecystitis (Acute) Obstructive jaundice (Acute) - Physical Exam Vital Signs Temp Pulse Resp BP Pulse Ox 99.0 F 91 18 120/76 98 06/22/19 13:35 06/22/19 13:35 06/22/19 13:35 06/22/19 13:35 06/22/19 13:35 Oxygen Delivery Method Room Air Weight: 120 lb 5.958 oz Body Mass Index (BMI) 22.7 Intake and Output for Last 24 Hours 06/20/19 06/21/19 06/22/19 23:59 23:59 23:59 Intake Total 3050 / 3050 3320.00 / 3320.00 723.33 / 723.33 Output Total 550 / 550 1150 / 1150 Balance 3050 / 3050 2770.00 / 2770.00 -426.67 / -426.67 Laboratory Tests Past 24 Hrs 06/22/19 06/22/19 06:06 06:06 WBC 16.8 H RBC 3.98 L Hgb 11.5 L Hct 34.4 L MCV 86.4 MCH 28.9 MCHC 33.4 RDW Std Deviation 54.9 H RDW Coeff of Christine 17.2 H Plt Count 244 MPV 9.8 Immature Gran % (Auto) 0.300 Neut % (Auto) 85.5 H Lymph % (Auto) 7.7 L [place] % (Auto) 6.2 Eos % (Auto) 0.1 Baso % (Auto) 0.2 Absolute Neuts (auto) 14.4 H Absolute Lymphs (auto) 1.29 Nucleated RBC % 0 Sodium 141 Potassium 4.2 Chloride 109 H Carbon Dioxide 17.0 L Anion Gap 15 BUN 6 L Creatinine 0.78 Estim Creat Clear Calc 86.09 Est GFR (MDRD) Af Amer 120 Est GFR (MDRD) Non-Af 100 BUN/Creatinine Ratio 7.7 L Glucose 69 L Calcium 8.4 L Total Bilirubin 1.50 H AST 65 H ALT 174 H Alkaline Phosphatase 250 H Total Protein 6.4 Albumin 3.1 L Globulin 3.3 Albumin/Globulin Ratio 0.9 Lipase 8005 H Home Medications: Medications to take at Discharge Amoxicillin/Potassium Clav [Augmentin 875-125 Tablet] 1 ea PO BID 5 Days #10 tab 06/27/19 Oxycodone [Oxyir] 5 mg PO Q4H PRN PRN 5 Days #30 tab 06/27/19 Following Prescrptions Were Given to Patient: Amoxicillin/Potassium Clav [Augmentin 875-125 Tablet] 1 ea PO BID 5 Days #10 tab Transmission Status: Received by [facility] Oxycodone [Oxyir] 5 mg PO Q4H PRN PRN 5 Days #30 tab PRN Reason: Moderate Pain (4-6/10) Transmission Status: Received by [facility] Primary Care Physician: Care Physician,No Primary [Primary Care Provider] - Medical Necessity - Tobacco Use Smoking Status: Never smoker Tobacco Use: Non-smoker Meaningful Use Info Meaningful Use Diagnoses (Choose all that apply): None applicable
[2019-06-22] MEDS: Ensure Clear 120 ML Liquid PO (21:32)
[2019-06-22] MEDS: 0.9% NaCl Peripheral Flush Adult/Peds IV (21:33)
[2019-06-23] VITALS (7 sets, daily range): BP systolic 102–120; BP diastolic 49–65; PULSE 57–110; RESP 14–18; TEMP 36.9–38.6; O2SAT 94–100
[2019-06-23] MEDS: Morphine 4 MG/ML Syringe IV ×3 (01:58→21:45)
[2019-06-23] MEDS: Lactated Ringers 1,000 ML 100 ML IV ×3 (01:58→21:26)
[2019-06-23] MEDS: 0.9% NaCl Peripheral Flush Adult/Peds IV ×3 (01:59→21:45)
[2019-06-23] MEDS: Acetaminophen 325 MG Tablet 650 MG PO ×3 (05:26→21:27)
[2019-06-23 07:05] LABS: Absolute Neutrophil Count 13.7 X10^3/uL (2.0-7.7); Basophil# 0.03 X10^3/uL; Basophil% 0.2 % (0-1); Eosinophil# 0.07 X10^3/uL; Eosinophils% 0.4 % (0-5); Hematocrit 31.2 % (37-47); Hemoglobin 10.5 g/dL (12.0-15.0); Lymphocyte % 6.4 % (19-41); Mean Corp Hgb Conc 33.7 g/dL (32-36); Mean Corpuscular Hgb 28.5 pg (27.0-32.0); Mean Corpuscular Volume 84.8 fL (81-99); Mean Platelet Vol. 9.6 fl (6.2-12.0); Monocyte# 0.91 X10^3/uL; Monocyte% 5.8 % (0-10); NRBC Flagged by Analyzer 0 % (0-5); Neutrophil # 13.66 X10^3/uL (2.7-7.7); Neutrophil % 86.8 % (47-70); Platelet Count 199 K/mm3 (150-450); RBC Distribution Width CV 17.1 % (11.6-14.6); RBC Distribution Width SD 52.8 fl (35.1-43.9); Red Blood Count 3.68 M/mm3 (4.2-5.4); White Blood Count 15.7 K/mm3 (4.4-11.0)
[2019-06-23 07:24] LABS: ALB/GLOB Ratio 0.8 RATIO (0.9-2.4); AST(SGOT) 32 U/L (15-37); Alanine Aminotransfer ALT/SGPT 105 U/L (13-56); Albumin, Serum 2.5 g/dL (3.2-5.0); Alkaline Phosphatase 188 U/L (45-117); Anion Gap 9 (5-15); BUN 4 mg/dL (7-18); BUN/Creat Ratio 7.7 RATIO (10-20); Calcium,Total 8.1 mg/dL (8.5-10.1); Chloride 110 mmol/L (98-107); Creatinine, Serum 0.52 mg/dL (0.55-1.02); EST Glomerular Filtration Rate 159 mL/min (>60); Est Glom Filt Rate - Afr Amer 192 mL/min (>60); Estimated Creatinine Clearance 129.14 ml/min; Globulin 3.2 g/dL (2.2-4.2); Glucose 92 mg/dL (74-106); Lipase 1124 U/L (73-393); Potassium 3.6 mmol/L (3.5-5.1); Protein, Total 5.7 g/dL (6.4-8.2); Sodium Level 143 mmol/L (136-145)
--- NOTE | 2019-06-23 07:24 | PN.SURG_ITS ---
Patient Problems: Active and Suspected Problems Right sided abdominal pain (Acute) Hyperbilirubinemia (Acute) Transaminitis (Acute) Acute obstructive cholangitis (Acute) Acute cholecystitis (Acute) Obstructive jaundice (Acute) Subjective: Patient tolerating clears, flatus yesterday per patient no bowel movement, patient only had morphine once yesterday and claims most of her pains at the umbilical incision denies the epigastric pain that she previously had. Labs pending. - Physical Exam General: Alert, Oriented x3, Cooperative, No apparent distress Lungs: Normal air movement Cardiovascular: Regular rate Abdomen: Soft, Distended - Mild, Tender - Tender near mainly umbilical incision, incisions clean dry and intact with op sites, no peritoneal signs Extremities: No clubbing, No cyanosis, No edema Vital Signs Temp Pulse Resp BP Pulse Ox 98.9 F 57 L 14 105/49 L 94 06/23/19 02:06 06/23/19 02:06 06/23/19 02:06 06/23/19 02:06 06/23/19 06:36 Oxygen Delivery Method Room Air Weight: 120 lb 5.958 oz Body Mass Index (BMI) 22.7 Intake and Output for Last 24 Hours 06/21/19 06/22/19 06/23/19 23:59 23:59 23:59 Intake Total 3320.00 / 3320.00 2113.33 / 2113.33 1350 / 1350 Output Total 550 / 550 2950 / 2950 Balance 2770.00 / 2770.00 -836.67 / -836.67 1350 / 1350 Laboratory Tests Past 24 Hrs 06/23/19 06/23/19 06:30 06:30 WBC 15.7 H RBC 3.68 L Hgb 10.5 L Hct 31.2 L MCV 84.8 MCH 28.5 MCHC 33.7 RDW Std Deviation 52.8 H RDW Coeff of Christine 17.1 H Plt Count 199 MPV 9.6 Immature Gran % (Auto) 0.400 Neut % (Auto) 86.8 H Lymph % (Auto) 6.4 L [place] % (Auto) 5.8 Eos % (Auto) 0.4 Baso % (Auto) 0.2 Absolute Neuts (auto) 13.7 H Absolute Lymphs (auto) 1.00 Nucleated RBC % 0 Sodium 143 Potassium 3.6 Chloride 110 H Carbon Dioxide 24.0 Anion Gap 9 BUN 4 L Creatinine 0.52 L Estim Creat Clear Calc 129.14 Est GFR (MDRD) Af Amer 192 Est GFR (MDRD) Non-Af 159 BUN/Creatinine Ratio 7.7 L Glucose 92 Calcium 8.1 L Total Bilirubin 1.10 H AST 32 ALT 105 H Alkaline Phosphatase 188 H Total Protein 5.7 L Albumin 2.5 L Globulin 3.2 Albumin/Globulin Ratio 0.8 L Lipase 1124 H Medical Necessity - Tobacco Use Smoking Status: Never smoker Tobacco Use: Non-smoker Assessment/Plan All Active Problems Right sided abdominal pain (Acute) Hyperbilirubinemia (Acute) Transaminitis (Acute) Acute obstructive cholangitis (Acute) Acute cholecystitis (Acute) Obstructive jaundice (Acute) delivery delivered (Acute) 39 weeks gestation of (Acute) SROM (spontaneous rupture of membranes) (Acute) 40 weeks gestation of (Acute) 19-year-old female status post ERCP postop day 3, status post laparoscopic cholecystectomy with laparoscopic common bile duct exploration postop day 2 Patient tolerating clears would like more of a diet also having flatus. Will check labs at labs are improved will advance to full's. Leukocytosis patient still has leukocytosis of 15 we will continue the IV Zosyn and continue to monitor. Continue ambulation Addendum: Lipase is down to thousand 3000 and LFTs are also decreasing will a dvance to full's. Reina Pruett M.D. Pager: [phone] [facility] [address] [place] [address], [facility], [address] [place] [address] Office: [phone]
[2019-06-23] MEDS: Pantoprazole Sodium 40 MG Tablet PO (09:37)
[2019-06-23] MEDS: oxyCODONE 5 MG Tablet PO (09:37)
[2019-06-23] MEDS: 0.9% NaCl IVPB Med Flush (250 mL) 15 ML IV (18:32)
--- NOTE | 2019-06-23 19:30 | NURSING ---
PATIENT BREAST FEEDING, STATES THAT THE DOCTOR TOLD HER TODAY THAT IT WOULD BE OKAY TO BREAST FEED.
[2019-06-23] MEDS: Ondansetron 4 MG/2 ML Vial IV (21:44)
--- NOTE | 2019-06-23 22:27 | RAD_ITS ---
HISTORY: FEVER ADDITIONAL HISTORY: None provided. COMPARISON: No previous chest imaging TECHNIQUE: Frontal chest radiograph. Number of images including paperwork: 1 FINDINGS: LUNGS AND PLEURA: Small bilateral pleural effusions. Small area of airspace opacity in the left costophrenic angle may be related to atelectasis or early/mild infiltrate. Minimal linear bilateral subsegmental atelectasis. CARDIAC SILHOUETTE: Unremarkable. MEDIASTINUM AND JENNA: Unremarkable. UPPER ABDOMEN: Lucency noted centrally in the upper abdomen, possibly artifact versus postoperative free air. SKELETON AND SOFT TISSUES: No acute findings. OTHER DEVICES AND HARDWARE: None. RAD/Chest 1 View (Portable) IMPRESSION: Small bilateral pleural effusions. Mild left basilar opacity, possibly atelectasis versus infiltrate. at 2257 Reported and signed by: Devi Staley MD Electronically Signed: Devi Staley MD at 22:57 EDT Tel , Service support ,
[2019-06-23 23:35] LABS: Bacteria 0 SEEN /hpf (None Seen); Mucous, Urine 0 SEEN /hpf (<or=2+)
[2019-06-23 23:59] LABS: Color, Urine Yellow (Yellow); Glucose, Dipstick Normal (Normal); Ketone-Dipstick Negative (Negative); Leukocyte Esterase-Dipstick 25 /ul (Negative); Nitrite-Dipstick Negative (Negative); Occult Blood-Urine 250 /ul (Negative); Protein-Dipstick 30 mg/dl (Negative); Urine Bilirubin Dipstick Negative (Negative); Urine Clarity Sl. Cloudy (Clear); Urine Urobilinogen Normal (Normal)
[2019-06-24] VITALS (8 sets, daily range): BP systolic 106–118; BP diastolic 60–63; PULSE 73–100; RESP 16–18; TEMP 37–37.8; O2SAT 95–99
[2019-06-24 00:09] LABS: Red Blood Cells-Urine > 100 SEEN /hpf (0-5); Squamous Epithelial Cells - UA 5-10 SEEN /hpf (5-10); White Blood Cells 0-5 SEEN /hpf (0-5)
[2019-06-24 06:25] LABS: Absolute Lymphocyte Count 0.89 X10^3/uL (0.83-4.51); Absolute Neutrophil Count 12.9 X10^3/uL (2.0-7.7); Basophil# 0.02 X10^3/uL; Basophil% 0.1 % (0-1); Eosinophil# 0.09 X10^3/uL; Eosinophils% 0.6 % (0-5); Hematocrit 29.6 % (37-47); Lymphocyte # 0.89 X10^3/ul (4.0); Mean Corp Hgb Conc 33.8 g/dL (32-36); Mean Corpuscular Volume 85.8 fL (81-99); Mean Platelet Vol. 10.2 fl (6.2-12.0); Monocyte# 0.89 X10^3/uL; NRBC Flagged by Analyzer 0 % (0-5); Neutrophil # 12.92 X10^3/uL (2.7-7.7); Neutrophil % 86.8 % (47-70); Platelet Count 222 K/mm3 (150-450); RBC Distribution Width CV 17.2 % (11.6-14.6); Red Blood Count 3.45 M/mm3 (4.2-5.4); White Blood Count 14.9 K/mm3 (4.4-11.0)
[2019-06-24] MEDS: Lactated Ringers 1,000 ML 100 ML IV (06:27)
[2019-06-24 06:48] LABS: AST(SGOT) 20 U/L (15-37); Alanine Aminotransfer ALT/SGPT 77 U/L (13-56); Albumin, Serum 2.3 g/dL (3.2-5.0); Alkaline Phosphatase 170 U/L (45-117); Anion Gap 5 (5-15); BUN 2 mg/dL (7-18); BUN/Creat Ratio 3.7 RATIO (10-20); Bilirubin, Direct 0.48 mg/dL (0.00-0.30); Chloride 110 mmol/L (98-107); Creatinine, Serum 0.53 mg/dL (0.55-1.02); EST Glomerular Filtration Rate 153 mL/min (>60); Est Glom Filt Rate - Afr Amer 185 mL/min (>60); Globulin 3.4 g/dL (2.2-4.2); Glucose 117 mg/dL (74-106); Potassium 3.1 mmol/L (3.5-5.1); Protein, Total 5.7 g/dL (6.4-8.2); Sodium Level 142 mmol/L (136-145)
--- NOTE | 2019-06-24 07:31 | PN.SURG_ITS ---
Patient Problems: Active and Suspected Problems Right sided abdominal pain (Acute) Hyperbilirubinemia (Acute) Transaminitis (Acute) Acute obstructive cholangitis (Acute) Acute cholecystitis (Acute) Obstructive jaundice (Acute) Subjective: Patient did have increased abdominal pain had been advance to regular diet after tolerating full's, positive flatus no bowel movement, still elevated white blood cell count on Zosyn IV, liver functions have been decreasing patient, did also have a fever of 101.4 and also complains of some lower back pain as well. - Physical Exam General: Alert, Oriented x3, Cooperative, No apparent distress Abdomen: Soft, Distended - Mild, Tender - Near incisions however seems more tender than yesterday, no peritoneal signs Vital Signs Temp Pulse Resp BP Pulse Ox 99.9 F H 87 18 110/63 95 06/24/19 04:45 06/24/19 04:45 06/24/19 04:45 06/24/19 04:45 06/24/19 07:09 Oxygen Delivery Method Room Air Weight: 120 lb 5.958 oz Body Mass Index (BMI) 22.7 Intake and Output for Last 24 Hours 06/22/19 06/23/19 06/24/19 23:59 23:59 23:59 Intake Total 2113.33 / 2113.33 5630.87 / 5630.87 971.03 / 971.03 Output Total 2950 / 2950 Balance -836.67 / -836.67 5630.87 / 5630.87 971.03 / 971.03 Laboratory Tests Past 24 Hrs 06/23/19 06/24/19 06/24/19 21:40 06:05 06:05 WBC 14.9 H RBC 3.45 L Hgb 10.0 L Hct 29.6 L MCV 85.8 MCH 29.0 MCHC 33.8 RDW Std Deviation 54.0 H RDW Coeff of Christine 17.2 H Plt Count 222 MPV 10.2 Immature Gran % (Auto) 0.500 Neut % (Auto) 86.8 H Lymph % (Auto) 6.0 L [place] % (Auto) 6.0 Eos % (Auto) 0.6 Baso % (Auto) 0.1 Absolute Neuts (auto) 12.9 H Absolute Lymphs (auto) 0.89 Nucleated RBC % 0 Sodium 142 Potassium 3.1 L Chloride 110 H Carbon Dioxide 27.0 Anion Gap 5 BUN 2 L Creatinine 0.53 L Estim Creat Clear Calc 126.70 Est GFR (MDRD) Af Amer 185 Est GFR (MDRD) Non-Af 153 BUN/Creatinine Ratio 3.7 L Glucose 117 H Calcium 8.0 L Total Bilirubin 0.90 Direct Bilirubin 0.48 H AST 20 ALT 77 H Alkaline Phosphatase 170 H Total Protein 5.7 L Albumin 2.3 L Globulin 3.4 Urine Color Yellow Urine Clarity Sl. Cloudy Urine pH 7.0 Ur Specific [place] 1.010 Urine Protein 30 H Urine Glucose (UA) Normal Urine Ketones Negative Urine Occult Blood 250 H Urine Nitrite Negative Urine Bilirubin Negative Urine Urobilinogen Normal Ur Leukocyte Esterase 25 H Urine RBC > 100 SEEN Urine WBC 0-5 SEEN Ur Squamous Epith Cells 5-10 SEEN Urine Bacteria 0 SEEN Urine Mucus 0 SEEN Medical Necessity - Tobacco Use Smoking Status: Never smoker Tobacco Use: Non-smoker Assessment/Plan All Active Problems Right sided abdominal pain (Acute) Hyperbilirubinemia (Acute) Transaminitis (Acute) Acute obstructive cholangitis (Acute) Acute cholecystitis (Acute) Obstructive jaundice (Acute) delivery delivered (Acute) 39 weeks gestation of (Acute) SROM (spontaneous rupture of membranes) (Acute) 40 weeks gestation of (Acute) 19-year-old female status post ERCP postop day 4, status post laparoscopic cholecystectomy with laparoscopic common bile duct exploration postop day 3 Patient is having no more abdominal pain will change back to clears Leukocytosis patient still has leukocytosis of 14 we will continue the IV Zosyn and continue to monitor. Continue ambulation Lipase is pending. Fever, chest x-ray complaints small amount of bilateral atelectasis, but cultures pending, UA had blood but no bacteria and less than 5 white blood cells-- will check CT a/p due to fever, epigastric, mid and lower back pain with hematuria--pt agreeable with plan Reina Pruett M.D. Pager: [phone] [facility] [address] [place] [address], [facility], [address] [place] [address] Office: [phone]
[2019-06-24 07:47] LABS: Lipase 853 U/L (73-393)
[2019-06-24] MEDS: Morphine 4 MG/ML Syringe IV (07:57)
[2019-06-24] MEDS: 0.9% NaCl Peripheral Flush Adult/Peds IV (07:57)
[2019-06-24] MEDS: Docusate Sodium 100 MG Capsule PO (08:39)
[2019-06-24] MEDS: Pantoprazole Sodium 40 MG Tablet PO (08:39)
--- NOTE | 2019-06-24 09:00 | NURSING ---
Pt c/o ABd pain this morning. This nurse called Dr. Pruett even though she made note of it in her progress note, Pt wanted this nurse to touch base with the Doctor. Also wanted to see if patient could have Simethicone tablet. This nurse educated pt on staying aware from carbonated drinks and straws to help decrease gas.
--- NOTE | 2019-06-24 09:19 | CT_ITS ---
STUDY: CT ABDOMEN AND PELVIS WITH AND WITHOUT CONTRAST REASON FOR EXAM: Female, 19 years old. Right-sided abdominal pain, fever, elevated white blood cell count. Cholecystectomy June 21, 2019. Patient is 9 weeks with emergency section. RADIATION DOSAGE (If Supplied By Facility): CTDIvol = ( 8.97 ) mGy, DLP = ( 906.56 ) mGycm TECHNIQUE: Transaxial images were obtained from the dome of the diaphragm to the symphysis pubis with oral contrast. IV/Oral Isovue 300 100 was administered. Sagittal and coronal images were reconstructed. Individualized dose optimization techniques were used for this CT. COMPARISON: CT abdomen and pelvis with IV and oral contrast territory 2018 FINDINGS: Small bilateral dependent pleural effusions now present. Minor compressive atelectasis seen in the posterior left costophrenic sulcus. The visualized portions of the heart are within normal limits. Small, incompletely defined area of decreased enhancement in the anterior left lobe of liver pneumothorax also malignant is a typical site of focal fatty infiltration. The portal vein diameter is 13.5 mm. Mildly irregular shaped/lobulated soft tissue density in the gallbladder fossa may be a small postsurgical hematoma. The common bile duct diameter 6 mm. Normal spleen. There is diffuse sonia-pancreatic edema suggesting acute pancreatitis. Normal bilateral adrenal glands. Normal right kidney. Normal left kidney. No demonstrated nephrolithiasis or hydronephrosis. Normal visualized stomach. Normal small intestine. Normal colon. Incidental note of the splenic flexure interposed anterior to the left lobe of the liver beneath the left diaphragm. The contrast-filled appendix is visualized on series 601 images 33-46 and appears normal. There is small volume ascites, probably predominantly in the lower abdomen/pelvis Normal abdominal aorta. Normal inferior vena cava. Incidental note of a bifurcated left renal vein with a retroaortic component. Stable nonspecific periaortic lymph nodes in the retroperitoneum. Normal urinary bladder. Normal visualized uterus. There is a crescent shaped 12.8 x 1.2 x 19 mm fluid density suggesting postoperative evolving hematoma/seroma in the tissue planes between the oblique muscles of the lateral right abdominal wall. Ill-defined 2.9 cm soft tissue density in the subcutaneous tissues of the anterior abdominal wall just below the umbilicus also consistent with postsurgical change. Normal osseous structures. CT/CT Abd/Pelvis W/WO Contrast IMPRESSION: 1. Status post cholecystectomy. Mildly lobulated soft tissue density in the gallbladder fossa may be a small postsurgical hematoma. 2. Small volume ascites, predominantly in the lower abdomen. 3. Elongated, crescent-shaped low density consistent with evolving post operative hematoma/seroma in the tissue planes between the oblique muscles of the right lateral abdominal wall. Probable postsurgical change/hematoma also seen within the subcutis tissues of the anterior abdominal wall just above the umbilicus. 4. Small dependent bilateral pleural effusions now present. There is minor atelectasis in the left lung base. 5. The bowel is unremarkable without sign of obstruction. Incidental note of splenic flexure interpose beneath the left diaphragm anterior to the left lobe of the liver. Electronically Signed: Sylvester Purdy MD at 15:17 EDT , Service support ,
[2019-06-24] MEDS: Acetaminophen 325 MG Tablet 650 MG PO ×2 (10:29→17:59)
[2019-06-24] MEDS: Ensure Clear 120 ML Liquid PO (18:02)
[2019-06-25] VITALS (8 sets, daily range): BP systolic 96–117; BP diastolic 52–72; PULSE 74–92; RESP 16; TEMP 36.6–37.7; O2SAT 96–100
--- NOTE | 2019-06-25 02:00 | NURSING ---
PATIENT CALLED OUT TO FOR RN, PATIENT WOKE UP AND WAS SOAKED WITH SWEAT, NO FEVER AT THIS TIME.
[2019-06-25] MEDS: 0.9% NaCl Peripheral Flush Adult/Peds IV ×4 (04:03→22:35)
[2019-06-25 05:37] LABS: Absolute Lymphocyte Count 1.06 X10^3/uL (0.83-4.51); Absolute Neutrophil Count 10.2 X10^3/uL (2.0-7.7); Basophil# 0.02 X10^3/uL; Basophil% 0.2 % (0-1); Eosinophil# 0.19 X10^3/uL; Eosinophils% 1.6 % (0-5); Hematocrit 31.3 % (37-47); Hemoglobin 10.5 g/dL (12.0-15.0); Lymphocyte # 1.06 X10^3/ul (4.0); Lymphocyte % 8.7 % (19-41); Mean Corp Hgb Conc 33.5 g/dL (32-36); Mean Corpuscular Hgb 28.6 pg (27.0-32.0); Mean Corpuscular Volume 85.3 fL (81-99); Mean Platelet Vol. 9.7 fl (6.2-12.0); Monocyte# 0.66 X10^3/uL; Monocyte% 5.4 % (0-10); NRBC Flagged by Analyzer 0 % (0-5); Neutrophil % 83.5 % (47-70); Platelet Count 272 K/mm3 (150-450); RBC Distribution Width CV 16.9 % (11.6-14.6); RBC Distribution Width SD 53.4 fl (35.1-43.9); Red Blood Count 3.67 M/mm3 (4.2-5.4); White Blood Count 12.2 K/mm3 (4.4-11.0)
[2019-06-25 06:14] LABS: AST(SGOT) 20 U/L (15-37); Alanine Aminotransfer ALT/SGPT 66 U/L (13-56); Albumin, Serum 2.6 g/dL (3.2-5.0); Alkaline Phosphatase 162 U/L (45-117); Anion Gap 7 (5-15); BUN 4 mg/dL (7-18); BUN/Creat Ratio 10.6 RATIO (10-20); Bilirubin, Direct 0.38 mg/dL (0.00-0.30); Calcium,Total 8.7 mg/dL (8.5-10.1); Chloride 111 mmol/L (98-107); Creatinine, Serum 0.38 mg/dL (0.55-1.02); EST Glomerular Filtration Rate 229 mL/min (>60); Est Glom Filt Rate - Afr Amer 277 mL/min (>60); Estimated Creatinine Clearance 176.72 ml/min; Globulin 3.6 g/dL (2.2-4.2); Glucose 93 mg/dL (74-106); Lipase 761 U/L (73-393); Potassium 3.5 mmol/L (3.5-5.1); Protein, Total 6.2 g/dL (6.4-8.2); Sodium Level 144 mmol/L (136-145)
[2019-06-25] MEDS: Piperacil/Tazobactam 3.375 GM/50 ML ML IV ×3 (08:57→22:35)
[2019-06-25] MEDS: Pantoprazole Sodium 40 MG Tablet PO (08:58)
[2019-06-25] MEDS: Acetaminophen 325 MG Tablet 650 MG PO ×2 (09:00→20:43)
[2019-06-25] MEDS: Ensure Clear 120 ML Liquid PO ×2 (09:01→13:00)
--- NOTE | 2019-06-25 13:32 | CASEMGMT ---
SHILPI TUCKER assessment: Face to Face with patient for initial transition planning/care coordination assessment. SHILPI TUCKER introduced self and role at [facility], pt voices understanding and consents to assessment at this time. Pt is sitting up in bed in no distress at this time. Pt is A/Ox4 at this time and answers all questions appropriately at this time. Pt's is at bedside during assessment. Care providers, pharmacy, and demographics verified at this time. Pt presented with right upper abd pain on 06/20/19. Pt states has pain until she vomits and then pain goes away for awhile. Pt is 9wks . Pt states decreased appetite. Pt had lap yesi on lap yesi with lap common bile duct exploration on 06/21/19. Pt then developed fever on 06/23/19 and increased pain with advancement of diet. PCP: Pt states has Dr. Pichardo currently but is planning on switching to a new PCP and declines list at this time. Specialists: Rudy, surgeon Preferred Pharmacy: [facility] in [place] or [place] Insurance: [employer] Prescription Benefit: None, pt pays out of pocket Living Will/HPOA: Pt does not have LW/HPOA and declines info at this time. LNOK: Hugo Tomas, Living Arrangements: Pt lives with and child and states no concerns at home at this time. Transportation: Pt states no transportation concerns at this time. DME/HHC: Pt states no current DME or need for any at this time. Pt states no hx of HHC or SNF. Pt states no concerns with going home at time of discharge. 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 Pt states does not smoke or drink ETOH. Pt states no further concerns/needs at this time. CM to follow for any further discharge planning/needs. Advised pt to ask for CM if any further questions/concerns/needs arise, voices understanding. Pt Goal: Home Plan[place] SHILPI TUCKER
--- NOTE | 2019-06-25 15:19 | PN.SURG_ITS ---
Patient Problems: Active and Suspected Problems Right sided abdominal pain (Acute) Hyperbilirubinemia (Acute) Transaminitis (Acute) Acute obstructive cholangitis (Acute) Acute cholecystitis (Acute) Obstructive jaundice (Acute) Subjective: Patient was complaining of right lower quadrant pain this morning. She said that when she was advanced to full liquids she had some nausea vomiting. She had no vomiting overnight but she did have a low-grade fever. - Physical Exam General: Alert, Oriented x3 Neck: No JVD Lungs: Normal air movement Cardiovascular: Regular rate, Regular Rhythm Abdomen: Soft, Non-Distended, Tender - Tender on the right lateral abdominal wall Vital Signs Temp Pulse Resp BP Pulse Ox 98.8 F 92 16 96/52 L 96 06/25/19 14:00 06/25/19 14:00 06/25/19 14:00 06/25/19 14:00 06/25/19 14:00 Oxygen Delivery Method Room Air Weight: 120 lb 5.958 oz Body Mass Index (BMI) 22.7 Intake and Output for Last 24 Hours 06/23/19 06/24/19 06/25/19 23:59 23:59 23:59 Intake Total 5630.87 / 5630.87 1552.28 / 1792.28 930 / 930 Balance 5630.87 / 5630.87 1552.28 / 1792.28 930 / 930 Microbiology Past 72 Hours 06/23/19 21:40 Urine Culture - Preliminary Urine, Clean Catch Culture exhibits no growth. Laboratory Tests Past 24 Hrs 06/25/19 06/25/19 05:10 05:10 WBC 12.2 H RBC 3.67 L Hgb 10.5 L Hct 31.3 L MCV 85.3 MCH 28.6 MCHC 33.5 RDW Std Deviation 53.4 H RDW Coeff of Christine 16.9 H Plt Count 272 MPV 9.7 Immature Gran % (Auto) 0.600 Neut % (Auto) 83.5 H Lymph % (Auto) 8.7 L [place] % (Auto) 5.4 Eos % (Auto) 1.6 Baso % (Auto) 0.2 Absolute Neuts (auto) 10.2 H Absolute Lymphs (auto) 1.06 Nucleated RBC % 0 Sodium 144 Potassium 3.5 Chloride 111 H Carbon Dioxide 26.0 Anion Gap 7 BUN 4 L Creatinine 0.38 L Estim Creat Clear Calc 176.72 Est GFR (MDRD) Af Amer 277 Est GFR (MDRD) Non-Af 229 BUN/Creatinine Ratio 10.6 Glucose 93 Calcium 8.7 Total Bilirubin 0.80 Direct Bilirubin 0.38 H AST 20 ALT 66 H Alkaline Phosphatase 162 H Total Protein 6.2 L Albumin 2.6 L Globulin 3.6 Lipase 761 H Medical Necessity - Tobacco Use Smoking Status: Never smoker Tobacco Use: Non-smoker Assessment/Plan All Active Problems Right sided abdominal pain (Acute) Hyperbilirubinemia (Acute) Transaminitis (Acute) Acute obstructive cholangitis (Acute) Acute cholecystitis (Acute) Obstructive jaundice (Acute) delivery delivered (Acute) 39 weeks gestation of (Acute) SROM (spontaneous rupture of membranes) (Acute) 40 weeks gestation of (Acute) 19-year-old female status post laparoscopic cholecystectomy with common bile duct exploration 1. Patient had white count that is still elevated but decreased from yesterday as is her lipase. I will continue Zosyn. CT scan was performed. There is pancreatitis with some fluid in the gallbladder fossa. There is also fluid collection between the oblique muscles on the right side. The patient is complaining of pain around this fluid collection between the obliques. This is likely a hematoma. She does not complain of any epigastric or right upper quadrant pain. She has no nausea or vomiting. She did have a low-grade fever this morning. She was very hungry this afternoon after being maintained on clears. I did allow her to have some crackers and applesauce. Recheck labs in the morning. Continue antibiotics and PPI. Misael Grant MD Pager: [facility] [address] [place] [address], [address] [place] [address] Office:
--- NOTE | 2019-06-25 22:57 | NURSING ---
pt c/o new onset bulge to above umbilicus at lap site. pt c/o sharp pain withe movement and touch. denies n/v/d. this RN called finishing pan operator to notify dewayne; operated states he does not take calls for his own pts after hours. kacey called this RN and was updated regarding new bulge. kacey states he will come take a look. pt updated.
--- NOTE | 2019-06-25 23:04 | PCM.PN.SRG ---
Patient Problems: Active and Suspected Problems Right sided abdominal pain (Acute) Hyperbilirubinemia (Acute) Transaminitis (Acute) Acute obstructive cholangitis (Acute) Acute cholecystitis (Acute) Obstructive jaundice (Acute) Subjective: Got a phone call at approximately 1030 from the floor nurse with regards to an increasing bulge above her umbilicus. Patient states that it is been getting larger and more painful for her. She is not complaining of any nausea or vomiting. Objective: It appears that she has a postoperative hematoma at her umbilical site which is superior to her umbilicus. Steri-Strips are intact there does not appear to be a significant amount of bruising. She does not have any rebound guarding or peritoneal signs and her abdomen is soft. - Physical Exam Vital Signs Temp Pulse Resp BP Pulse Ox 98.9 F 90 16 112/72 98 06/25/19 22:33 06/25/19 22:33 06/25/19 22:33 06/25/19 22:33 06/25/19 22:33 Oxygen Delivery Method Room Air Weight: 120 lb 5.958 oz Body Mass Index (BMI) 22.7 Intake and Output for Last 24 Hours 06/23/19 06/24/19 06/25/19 23:59 23:59 23:59 Intake Total 5630.87 / 5630.87 1552.28 / 1792.28 1430 / 1430 Balance 5630.87 / 5630.87 1552.28 / 1792.28 1430 / 1430 Microbiology Past 72 Hours 06/23/19 21:40 Urine Culture - Preliminary Urine, Clean Catch Culture exhibits no growth. Laboratory Tests Past 24 Hrs 06/25/19 06/25/19 05:10 05:10 WBC 12.2 H RBC 3.67 L Hgb 10.5 L Hct 31.3 L MCV 85.3 MCH 28.6 MCHC 33.5 RDW Std Deviation 53.4 H RDW Coeff of Christine 16.9 H Plt Count 272 MPV 9.7 Immature Gran % (Auto) 0.600 Neut % (Auto) 83.5 H Lymph % (Auto) 8.7 L [place] % (Auto) 5.4 Eos % (Auto) 1.6 Baso % (Auto) 0.2 Absolute Neuts (auto) 10.2 H Absolute Lymphs (auto) 1.06 Nucleated RBC % 0 Sodium 144 Potassium 3.5 Chloride 111 H Carbon Dioxide 26.0 Anion Gap 7 BUN 4 L Creatinine 0.38 L Estim Creat Clear Calc 176.72 Est GFR (MDRD) Af Amer 277 Est GFR (MDRD) Non-Af 229 BUN/Creatinine Ratio 10.6 Glucose 93 Calcium 8.7 Total Bilirubin 0.80 Direct Bilirubin 0.38 H AST 20 ALT 66 H Alkaline Phosphatase 162 H Total Protein 6.2 L Albumin 2.6 L Globulin 3.6 Lipase 761 H Medical Necessity - Tobacco Use Smoking Status: Never smoker Tobacco Use: Non-smoker Assessment/Plan All Active Problems Right sided abdominal pain (Acute) Hyperbilirubinemia (Acute) Transaminitis (Acute) Acute obstructive cholangitis (Acute) Acute cholecystitis (Acute) Obstructive jaundice (Acute) delivery delivered (Acute) 39 weeks gestation of (Acute) SROM (spontaneous rupture of membranes) (Acute) 40 weeks gestation of (Acute) Assessment postoperative hematoma plan: At this point I really do not think there is anything for us to do here. I anticipate this will hopefully not get any larger but will reassess it tomorrow. There does not appear to be any signs of infection here. And nothing is coming out of the wound. So I do not think an I&D is warranted.
--- NOTE | 2019-06-26 03:39 | NURSING ---
in pt's room to take vitals and assess; pt refusing at this time states i'll see you in the morning. discussed care plan with pt, pt continues to refuse care at this time.
[2019-06-26 05:56] VITALS: BP 106/62; PULSE 64; RESP 16; TEMP 37.2; O2SAT 99
[2019-06-26] MEDS: Piperacil/Tazobactam 3.375 GM/50 ML ML IV (06:29)
[2019-06-26 06:43] LABS: Absolute Neutrophil Count 8.7 X10^3/uL (2.0-7.7); Basophil# 0.03 X10^3/uL; Basophil% 0.3 % (0-1); Eosinophil# 0.27 X10^3/uL; Eosinophils% 2.4 % (0-5); Hematocrit 31.8 % (37-47); Hemoglobin 10.7 g/dL (12.0-15.0); Lymphocyte % 11.7 % (19-41); Mean Corp Hgb Conc 33.6 g/dL (32-36); Mean Corpuscular Hgb 28.6 pg (27.0-32.0); Mean Platelet Vol. 9.8 fl (6.2-12.0); Monocyte# 0.84 X10^3/uL; Monocyte% 7.5 % (0-10); NRBC Flagged by Analyzer 0 % (0-5); Neutrophil # 8.67 X10^3/uL (2.7-7.7); Neutrophil % 77.8 % (47-70); Platelet Count 323 K/mm3 (150-450); RBC Distribution Width CV 16.3 % (11.6-14.6); RBC Distribution Width SD 51.1 fl (35.1-43.9); Red Blood Count 3.74 M/mm3 (4.2-5.4); White Blood Count 11.1 K/mm3 (4.4-11.0)
[2019-06-26 07:03] LABS: ALB/GLOB Ratio 0.7 RATIO (0.9-2.4); AST(SGOT) 17 U/L (15-37); Alanine Aminotransfer ALT/SGPT 52 U/L (13-56); Albumin, Serum 2.5 g/dL (3.2-5.0); Alkaline Phosphatase 156 U/L (45-117); Anion Gap 7 (5-15); BUN 4 mg/dL (7-18); BUN/Creat Ratio 9.3 RATIO (10-20); Calcium,Total 8.8 mg/dL (8.5-10.1); Chloride 112 mmol/L (98-107); Creatinine, Serum 0.43 mg/dL (0.55-1.02); EST Glomerular Filtration Rate 197 mL/min (>60); Est Glom Filt Rate - Afr Amer 238 mL/min (>60); Estimated Creatinine Clearance 156.17 ml/min; Globulin 3.8 g/dL (2.2-4.2); Glucose 98 mg/dL (74-106); Lipase 1034 U/L (73-393); Potassium 3.2 mmol/L (3.5-5.1); Protein, Total 6.3 g/dL (6.4-8.2); Sodium Level 145 mmol/L (136-145)
[2019-06-26 08:37] VITALS: BP 109/62; PULSE 80; RESP 16; TEMP 37.2; O2SAT 97
[2019-06-26] MEDS: 0.9% NaCl Peripheral Flush Adult/Peds IV (08:45)
[2019-06-26] MEDS: Lactated Ringers 1,000 ML 60 ML IV (08:46)
[2019-06-26] MEDS: Acetaminophen 325 MG Tablet 650 MG PO ×2 (08:46→16:45)
[2019-06-26] MEDS: Ensure Clear 120 ML Liquid PO ×2 (08:46→12:15)
[2019-06-26] MEDS: Potassium Chloride 10mEq/100mL 10 MEQ/100 ML IV.SOLN. 100 MEQ IV BOLUS (08:59)
[2019-06-26] MEDS: Pantoprazole Sodium 40 MG Tablet PO (09:21)
[2019-06-26] MEDS: Potassium Chloride 10mEq/100mL 10 MEQ/100 ML IV.SOLN. 30 MEQ IV BOLUS (12:08)
[2019-06-26 16:36] VITALS: BP 120/73; PULSE 80; RESP 16; TEMP 37.2; O2SAT 99
[2019-06-26] MEDS: oxyCODONE 5 MG Tablet PO (18:41)
[2019-06-26 21:45] VITALS: BP 108/68; PULSE 69; RESP 16; TEMP 36.8; O2SAT 95
[2019-06-27] MEDS: Lactated Ringers 1,000 ML 60 ML IV (02:15)
--- NOTE | 2019-06-27 03:15 | NURSING ---
Pt. declines to have vitals taken at this time. States she would like uninterrupted sleep until the next time medication is due to be given.
[2019-06-27 05:54] LABS: Absolute Lymphocyte Count 1.61 X10^3/uL (0.83-4.51); Absolute Neutrophil Count 9.4 X10^3/uL (2.0-7.7); Basophil# 0.03 X10^3/uL; Basophil% 0.2 % (0-1); Eosinophil# 0.28 X10^3/uL; Eosinophils% 2.3 % (0-5); Hematocrit 31.4 % (37-47); Hemoglobin 10.6 g/dL (12.0-15.0); Lymphocyte # 1.61 X10^3/ul (4.0); Lymphocyte % 13.2 % (19-41); Mean Corp Hgb Conc 33.8 g/dL (32-36); Mean Platelet Vol. 9.8 fl (6.2-12.0); Monocyte# 0.84 X10^3/uL; Monocyte% 6.9 % (0-10); NRBC Flagged by Analyzer 0 % (0-5); Neutrophil # 9.41 X10^3/uL (2.7-7.7); Neutrophil % 76.8 % (47-70); Platelet Count 359 K/mm3 (150-450); RBC Distribution Width CV 15.9 % (11.6-14.6); RBC Distribution Width SD 50.1 fl (35.1-43.9); Red Blood Count 3.65 M/mm3 (4.2-5.4); White Blood Count 12.2 K/mm3 (4.4-11.0)
[2019-06-27 05:57] VITALS: BP 101/63; PULSE 79; RESP 18; TEMP 37; O2SAT 96
[2019-06-27 06:28] LABS: ALB/GLOB Ratio 0.7 RATIO (0.9-2.4); AST(SGOT) 14 U/L (15-37); Alanine Aminotransfer ALT/SGPT 42 U/L (13-56); Albumin, Serum 2.6 g/dL (3.2-5.0); Alkaline Phosphatase 162 U/L (45-117); Anion Gap 5 (5-15); BUN 3 mg/dL (7-18); BUN/Creat Ratio 6.1 RATIO (10-20); Calcium,Total 9.1 mg/dL (8.5-10.1); Chloride 111 mmol/L (98-107); Creatinine, Serum 0.49 mg/dL (0.55-1.02); EST Glomerular Filtration Rate 170 mL/min (>60); Est Glom Filt Rate - Afr Amer 205 mL/min (>60); Estimated Creatinine Clearance 137.05 ml/min; Globulin 3.9 g/dL (2.2-4.2); Glucose 80 mg/dL (74-106); Lipase 724 U/L (73-393); Potassium 3.5 mmol/L (3.5-5.1); Protein, Total 6.5 g/dL (6.4-8.2); Sodium Level 143 mmol/L (136-145)
[2019-06-27 08:33] VITALS: BP 116/76; PULSE 74; RESP 16; TEMP 36.9; O2SAT 97
--- NOTE | 2019-06-27 08:35 | PN.SURG_ITS ---
Patient Problems: Active and Suspected Problems Right sided abdominal pain (Acute) Hyperbilirubinemia (Acute) Transaminitis (Acute) Acute obstructive cholangitis (Acute) Acute cholecystitis (Acute) Obstructive jaundice (Acute) Subjective: Patient reports she feels much better today. She is tolerating over 2 L of clear liquids. She had a bowel movement. She is passing flatus. No nausea or vomiting. - Physical Exam General: Alert, Oriented x3 Neck: No JVD Cardiovascular: Regular rate, Regular Rhythm Abdomen: Soft, Non Tender, Non-Distended Vital Signs Temp Pulse Resp BP Pulse Ox 98.6 F 79 18 101/63 96 06/27/19 05:57 06/27/19 05:57 06/27/19 05:57 06/27/19 05:57 06/27/19 05:57 Oxygen Delivery Method Room Air Weight: 120 lb 5.958 oz Body Mass Index (BMI) 22.7 Intake and Output for Last 24 Hours 06/25/19 06/26/19 06/27/19 23:59 23:59 23:59 Intake Total 1466.25 / 1926.25 2317.92 / 2317.92 1290 / 1290 Balance 1466.25 / 1926.25 2317.92 / 2317.92 1290 / 1290 Microbiology Past 72 Hours 06/23/19 23:10 Blood Culture - Preliminary Blood Culture (Wb) - Anticubital Right No growth in 48 hours. 06/23/19 23:05 Blood Culture - Preliminary Blood Culture (Wb) - Anticubital Left No growth in 48 hours. 06/23/19 21:40 Urine Culture - Final Urine, Clean Catch Yeast Like Organism Laboratory Tests Past 24 Hrs 06/27/19 06/27/19 05:15 05:15 WBC 12.2 H RBC 3.65 L Hgb 10.6 L Hct 31.4 L MCV 86.0 MCH 29.0 MCHC 33.8 RDW Std Deviation 50.1 H RDW Coeff of Christine 15.9 H Plt Count 359 MPV 9.8 Immature Gran % (Auto) 0.600 Neut % (Auto) 76.8 H Lymph % (Auto) 13.2 L [place] % (Auto) 6.9 Eos % (Auto) 2.3 Baso % (Auto) 0.2 Absolute Neuts (auto) 9.4 H Absolute Lymphs (auto) 1.61 Nucleated RBC % 0 Sodium 143 Potassium 3.5 Chloride 111 H Carbon Dioxide 27.0 Anion Gap 5 BUN 3 L Creatinine 0.49 L Estim Creat Clear Calc 137.05 Est GFR (MDRD) Af Amer 205 Est GFR (MDRD) Non-Af 170 BUN/Creatinine Ratio 6.1 L Glucose 80 Calcium 9.1 Total Bilirubin 0.60 AST 14 L ALT 42 Alkaline Phosphatase 162 H Total Protein 6.5 Albumin 2.6 L Globulin 3.9 Albumin/Globulin Ratio 0.7 L Lipase 724 H Medical Necessity - Tobacco Use Smoking Status: Never smoker Tobacco Use: Non-smoker Assessment/Plan All Active Problems Right sided abdominal pain (Acute) Hyperbilirubinemia (Acute) Transaminitis (Acute) Acute obstructive cholangitis (Acute) Acute cholecystitis (Acute) Obstructive jaundice (Acute) delivery delivered (Acute) 39 weeks gestation of (Acute) SROM (spontaneous rupture of membranes) (Acute) 40 weeks gestation of (Acute) 19-year-old female with post ERCP pancreatitis 1. The patient is tolerating clear liquid diet is going down well with no nausea or vomiting. She is not having any upper abdominal pain. Her lipase is still mildly elevated. I discussed discharging her today on clear liquids. I will call her Tuesday to discuss advancing her diet at home and see her back in the office on Tuesday. If she worsens at home at all she will return to the emergency room or call me. Misael Grant MD Pager: [facility] [address] [place] [address], [address] [place] [address] Office:
[2019-06-27 08:39] VITALS: PULSE 74; RESP 16; O2SAT 97
--- NOTE | 2019-06-27 08:40 | PCM.DC.GB ---
Discharge Diet: - - Clear liquids Discharge Activity: Return to Normal Activity, May Drive, May Shower May shower in (days): 1 - with the bandage in place. Additional Activity Instructions:: Pain medication may cause nausea. You should typically eat light foods as you take your pain medications. Pain medication may also cause constipation. If this is a problem for you, please discuss with your doctor. Call your doctor if your incision/area has: Continuous Slow Oozing, Sudden Increased Bleeding, Increased Pain/ Swelling, Increased Redness, Foul Smelling Discharge, Fever of 101 or Higher Call your doctor if you observe: Fever of 101 or Higher Suture Line Care: Avoid Pulling/Pushing, Avoid Pinching/Bending Allergies/Adverse Reactions: Allergies No Known Allergies Allergy (Verified 06/20/19 04:14) Medications to take at Discharge Amoxicillin/Potassium Clav [Augmentin 875-125 Tablet] 1 ea PO BID 5 Days #10 tab 06/27/19 Oxycodone [Oxyir] 5 mg PO Q4H PRN PRN 5 Days #30 tablet 06/27/19 The following prescriptions were given: Amoxicillin/Potassium Clav [Augmentin 875-125 Tablet] 1 ea PO BID 5 Days #10 tab Transmission Status: Pending to [facility] Oxycodone [Oxyir] 5 mg PO Q4H PRN PRN 5 Days #30 tablet PRN Reason: Moderate Pain (4-6/10) Transmission Status: Sent to [facility] Primary Care Physician: Care Physician,No Primary [Primary Care Provider] - Test Results: Test results from this visit will be discussed in further detail at your follow-up appointment, if applicable. Please Follow Up With: Misael Grant MD When: Please call today to schedule follow up for Mon. [phone]
--- NOTE | 2019-06-27 08:42 | PCM.DC.SUM ---
Discharge Date and Diagnosis - Problem List Patient Problems: Active and Suspected Problems Right sided abdominal pain (Acute) Hyperbilirubinemia (Acute) Transaminitis (Acute) Acute obstructive cholangitis (Acute) Acute cholecystitis (Acute) Obstructive jaundice (Acute) Date of Admission: 06/20/19 Date of Discharge: 06/27/19 - Primary Discharge Diagnosis Active and Suspected Problems Right sided abdominal pain (Acute) Hyperbilirubinemia (Acute) Transaminitis (Acute) Acute obstructive cholangitis (Acute) Acute cholecystitis (Acute) Obstructive jaundice (Acute) Hospital Course and Treatment Imaging Results: Clinical Impression(s) from Imaging Studies Abdomen/Pelvis CT 06/20/19 03:51 IMPRESSION: Minimal linear right basilar subsegmental atelectasis The gallbladder is somewhat contracted. There is possible gallbladder wall enhancement. Correlation with physical exam and clinical history is recommended. Right upper quadrant ultrasound would be recommended to exclude acute or chronic cholecystitis Mild to moderate colonic fecal load within the sigmoid colon Mild bladder wall thickening, incomplete distention versus cystitis Electronically Signed: Remy Sanchez at 6:13 EDT Tel , Service support , Abdomen Ultrasound 06/20/19 06:17 IMPRESSION: Multiple gallstones. Mild dilatation of the common bile duct. Electronically Signed: Yovany Sheikh, at 8:47 EDT , Service support , ERCP X-Ray 06/20/19 13:30 IMPRESSION: ERCP in the OR. Electronically Signed: Rob Jamies DO at 17:08 EDT Tel [phone], Service support , Cholangiogram 06/21/19 11:30 IMPRESSION: Mildly dilated common bile duct with filling defect in the distal portion suggestive of a small retained calculus. Electronically Signed: Yovany Sheikh, at 8:01 EDT , Service support , Cholangiogram,Operative 06/21/19 12:00 IMPRESSION: Mild residual dilatation of the common bile duct. No intraluminal filling defects are seen at this time. Free flow of contrast into the duodenum. Electronically Signed: Yovany Lynhosseinpam, at 8:03 EDT , Service support , Chest X-Ray 06/23/19 22:27 IMPRESSION: Small bilateral pleural effusions. Mild left basilar opacity, possibly atelectasis versus infiltrate. at 2257 Reported and signed by: Devi Staley MD Electronically Signed: Devi Staley MD at 22:57 EDT Tel , Service support , Abdomen/Pelvis CT 06/24/19 09:19 IMPRESSION: 1. Status post cholecystectomy. Mildly lobulated soft tissue density in the gallbladder fossa may be a small postsurgical hematoma. 2. Small volume ascites, predominantly in the lower abdomen. 3. Elongated, crescent-shaped low density consistent with evolving post operative hematoma/seroma in the tissue planes between the oblique muscles of the right lateral abdominal wall. Probable postsurgical change/hematoma also seen within the subcutis tissues of the anterior abdominal wall just above the umbilicus. 4. Small dependent bilateral pleural effusions now present. There is minor atelectasis in the left lung base. 5. The bowel is unremarkable without sign of obstruction. Incidental note of splenic flexure interpose beneath the left diaphragm anterior to the left lobe of the liver. Electronically Signed: Sylvester Purdy MD at 15:17 EDT , Service support , Operations: cholecystecomy, ERCP Procedures: None Summary of Care Provided: The patient is a 19 year old F presented with biliary obstruction due to gallstone. She underwent a very complicated ERCP and postoperatively developed pancreatitis. She was taken the following day for laparoscopic cholecystectomy with laparoscopic common duct exploration and removal of stone. After this procedure her hospitalization was centered around her pancreatitis. She was very slow to restart a diet and when she did restart her diet this flared her pancreatitis back up. She was started back on clears and was able to tolerate clears and will be discharged home and clear liquid diet. She will follow-up with me next week and we will advance her diet as an outpatient. Patient Problems: Active and Suspected Problems Right sided abdominal pain (Acute) Hyperbilirubinemia (Acute) Transaminitis (Acute) Acute obstructive cholangitis (Acute) Acute cholecystitis (Acute) Obstructive jaundice (Acute) - Physical Exam Vital Signs Temp Pulse Resp BP Pulse Ox 98.5 F 74 16 116/76 97 06/27/19 08:33 06/27/19 08:33 06/27/19 08:33 06/27/19 08:33 06/27/19 08:33 Oxygen Delivery Method Room Air Weight: 120 lb 5.958 oz Body Mass Index (BMI) 22.7 Intake and Output for Last 24 Hours 06/25/19 06/26/19 06/27/19 23:59 23:59 23:59 Intake Total 1466.25 / 1926.25 2317.92 / 2317.92 1290 / 1290 Balance 1466.25 / 1926.25 2317.92 / 2317.92 1290 / 1290 Microbiology Past 72 Hours 06/23/19 23:10 Blood Culture - Preliminary Blood Culture (Wb) - Anticubital Right No growth in 48 hours. 06/23/19 23:05 Blood Culture - Preliminary Blood Culture (Wb) - Anticubital Left No growth in 48 hours. 06/23/19 21:40 Urine Culture - Final Urine, Clean Catch Yeast Like Organism Laboratory Tests Past 24 Hrs 06/27/19 06/27/19 05:15 05:15 WBC 12.2 H RBC 3.65 L Hgb 10.6 L Hct 31.4 L MCV 86.0 MCH 29.0 MCHC 33.8 RDW Std Deviation 50.1 H RDW Coeff of Christine 15.9 H Plt Count 359 MPV 9.8 Immature Gran % (Auto) 0.600 Neut % (Auto) 76.8 H Lymph % (Auto) 13.2 L [place] % (Auto) 6.9 Eos % (Auto) 2.3 Baso % (Auto) 0.2 Absolute Neuts (auto) 9.4 H Absolute Lymphs (auto) 1.61 Nucleated RBC % 0 Sodium 143 Potassium 3.5 Chloride 111 H Carbon Dioxide 27.0 Anion Gap 5 BUN 3 L Creatinine 0.49 L Estim Creat Clear Calc 137.05 Est GFR (MDRD) Af Amer 205 Est GFR (MDRD) Non-Af 170 BUN/Creatinine Ratio 6.1 L Glucose 80 Calcium 9.1 Total Bilirubin 0.60 AST 14 L ALT 42 Alkaline Phosphatase 162 H Total Protein 6.5 Albumin 2.6 L Globulin 3.9 Albumin/Globulin Ratio 0.7 L Lipase 724 H Discharge Diet: - - Clear liquids Discharge Activity: Return to Normal Activity, May Drive, May Shower May shower in (days): 1 - with the bandage in place. Additional Activity Instructions:: Pain medication may cause nausea. You should typically eat light foods as you take your pain medications. Pain medication may also cause constipation. If this is a problem for you, please discuss with your doctor. Call your doctor if your incision/area has: Continuous Slow Oozing, Sudden Increased Bleeding, Increased Pain/ Swelling, Increased Redness, Foul Smelling Discharge, Fever of 101 or Higher Call your doctor if you observe: Fever of 101 or Higher Suture Line Care: Avoid Pulling/Pushing, Avoid Pinching/Bending Home Medications: Medications to take at Discharge Amoxicillin/Potassium Clav [Augmentin 875-125 Tablet] 1 ea PO BID 5 Days #10 tab 06/27/19 Oxycodone [Oxyir] 5 mg PO Q4H PRN PRN 5 Days #30 tablet 06/27/19 Following Prescrptions Were Given to Patient: Amoxicillin/Potassium Clav [Augmentin 875-125 Tablet] 1 ea PO BID 5 Days #10 tab Transmission Status: Pending to [facility] Oxycodone [Oxyir] 5 mg PO Q4H PRN PRN 5 Days #30 tablet PRN Reason: Moderate Pain (4-6/10) Transmission Status: Sent to [facility] Primary Care Physician: Care Physician,No Primary [Primary Care Provider] - Please Follow Up With: Misael Grant MD When: Please call today to schedule follow up for Mon. [phone] Medical Necessity - Tobacco Use Smoking Status: Never smoker Tobacco Use: Non-smoker Meaningful Use Info Meaningful Use Diagnoses (Choose all that apply): None applicable
[2019-06-27] MEDS: Ensure Clear 120 ML Liquid PO ×2 (09:26→11:42)
[2019-06-27] MEDS: Docusate Sodium 100 MG Capsule PO (09:27)
[2019-06-27] MEDS: Pantoprazole Sodium 40 MG Tablet PO (09:27)
--- NOTE | 2019-06-27 10:31 | PHA.DC.MC ---
Pharmacy Service has performed discharge medication reconciliation and counseling for this patient. 1. AMOXICILLIN/CLAVULANATE 875MG/125MG PO BID X 5 DAYS 2. OXYCODONE 5MG PO Q4H PRN MODERATE PAIN (4-6/10) X 5 DAYS The patient's discharge medication list was reviewed for discrepancies and discrepancies were resolved. Home Medications Amoxicillin/Potassium Clav [Augmentin 875-125 Tablet] 1 ea PO BID 5 Days #10 tab 06/27/19 Oxycodone [Oxyir] 5 mg PO Q4H PRN PRN 5 Days #30 tab 06/27/19 The patient was counseled on the following discharge medications and changes in medications for homegoing were reviewed. The Reason for Use, instructions for use, and potential side effects were reviewed for all new medications. The patient's questions regarding all of their medications were answered. The patient was able to verbally demonstrate an understanding of their discharge medications.
--- NOTE | 2019-06-27 13:26 | NURSING ---
Read and reviewed SN documentation
[2019-06-27 14:15] VITALS: BP 110/78; PULSE 83; RESP 18; TEMP 36.7; O2SAT 96
== END 2019-06-27 16:25 | disposition home or self-care (01) | DRG 356 ==
LOC: ED 06:28 → PCU 12:01
PROVIDERS: Family Medicine; Physician Assistant; Surgery; Admitting Provider Surgery; Emergency Provider Emergency Medicine; Referring Provider Surgery; Visit Provider Surgery
PROC: (CPT 43260; principal; 2019-06-20 12:45)
DX: K91.89 Other postprocedural complications and disorders of digestive system (principal); K85.90 Acute pancreatitis without necrosis or infection, unspecified; K56.7 Ileus, unspecified; K80.63 Calculus of gallbladder and bile duct with acute cholecystitis with obstruction; Y84.8 Other medical procedures as the cause of abnormal reaction of the patient, or of later complication, without mention of misadventure at the time of the procedure
CPT/HCPCS: 36415; 71045; 74177; 74178; 74300; 74301; 74328; 76000; 76705; 80048; 80053; 80076; 81001; 81025; 83690; 85025; 87040; 87086; 87088; 88304; 93005; 99285; J7030; J7050; J7120; Q9967; A4216; C1725; C1769; J1610; J2405

== ENCOUNTER 2019-07-03 09:12 | Day surgery (SDC) | payer OTHER, SELFPAY ==
[2019-07-02 09:34] VITALS: BMI 22.7
--- NOTE | 2019-07-02 10:33 | PCM.HP.BLA ---
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 Is patient in pain?: No Allergies No Known Allergies Allergy (Verified 07/02/19 09:34) Medications Amoxicillin/Potassium Clav [Augmentin 875-125 Tablet] 1 ea PO BID 5 Days #10 tab 06/27/19 [Rx Confirmed 07/02/19] Is last menstrual period known: No Post menopausal: No Patient : No PFSH Medical History (Updated 07/02/19 @ 09:34 by Tere Posey) Hyperbilirubinemia (Acute) Transaminitis (Acute) Acute obstructive cholangitis (Acute) Surgical History (Updated 07/02/19 @ 09:34 by Tere Posey) delivery delivered (Acute) Social History (Updated 07/02/19 @ 10:33 by Misael Grant MD) Smoking Status: Never smoker HPI HPI HPI: COLLIN MANN, is a 19 F who presents to the office today for HPI HPI HPI: COLLIN MANN, is a 19 F who presents to the office today for follow-up after hospitalization. The patient had obstructive jaundice and post ERCP pancreatitis. She had laparoscopic cholecystectomy with common duct exploration. Patient reports that she is eating small amounts with no abdominal pain. She says she does have early satiety. She is also complaining of a growing lump at the supraumbilical incision. ROS General General: No weight change or fatigue Cardio Cardiovascular: No murmur, pacemaker, heart disease, atrial fibrillation, high blood pressure, heart attack, heart stent, palpitations, shortness of breat with exertion or chest pain Psych Psychiatric: No depression or anxiety Resp Respiratory: No shortness of breath, No sleep apnea, No cough, No COPD, No asthma, No emphysema, No wheezing Gastro Gastrointestinal: No abdominal pain, No nausea or vomiting, No diarrhea, No constipation, No blood in stool, No acid reflux, No hemorrhoids, No ulcers, No gallbladder problem, No black,tarry stools [place] Hematologic: No blood thinners Exam Const General: cooperative Orientation: alert, oriented x3 Resp Effort & Inspection: normal respiratory effort Auscultation: clear to auscultation bilaterally Cardio Rate: regular rate Rhythm: regular rhythm Heart Sounds: no murmurs GI Inspection: non-distended Palpation: soft, nontender Other: Incisional hematoma at the supraumbilical incision. Assessment & Plan Problems 1. Other acute pancreatitis, unspecified complication status K85.80 2. Abdominal wall hematoma, initial encounter S30.1XXA Plan The patient has pancreatitis after ERCP. The patient reports that she is still having early satiety but is tolerating large amounts of liquids. She is tolerating juices as well as full liquids. When she takes solid she is able to eat with no pain but she does have early satiety. I would like to perform a CT scan with oral and IV contrast to check for pseudocysts or any sequelae of pancreatitis in 1 month. The patient has a subcutaneous hematoma at her supraumbilical port site. This has been growing since her hospitalization. The skin overlying it appears dark. The patient reports a large amount of pain associated with this. I did offer her evacuation of the hematoma. I explained that it could be done under local or MAC and she would like it done under MAC. I explained that I would open the incision and evacuate the hematoma and stop the bleeding and closed loosely. There is no erythema or purulent drainage. I explained the risks of bleeding and infection and the patient understands and will present for surgery tomorrow. Misael Grant MD Pager: [facility] [address] [place] [address], [address] [place] [address] Office:
[2019-07-03] VITALS (9 sets, daily range): BP systolic 94–108; BP diastolic 56–63; PULSE 52–61; RESP 15–16; TEMP 36.4–36.6; O2SAT 95–98; BMI 21.7
[2019-07-03 09:32] LABS: Internal QC Validated? YES +Cl - CLEAR BKGD
[2019-07-03 09:35] LABS: Pregnancy, Urine Negative Negative
[2019-07-03] MEDS: Lactated Ringers 1,000 ML 100 ML IV (09:46)
[2019-07-03] MEDS: Cefazolin 2 GM in 0.9% Normal Saline 100 ML IV (10:43)
[2019-07-03] MEDS: Bupivacaine 0.25% 30 ML Vial (10:52)
--- NOTE | 2019-07-03 11:05 | PCM.OPRPT ---
Problem List (1) Hematoma of abdominal wall Status: Acute Qualifiers: Encounter type: initial encounter Qualified Code(s): S30.1XXA - Contusion of abdominal wall, initial encounter Report of Operation Date of Procedure: 07/03/19 Pre-Operative Diagnosis: Postoperative hematoma of umbilical incision Post-Operative Diagnosis: Same Surgery/Procedure Performed:: Evacuation of incisional hematoma Description of Procedure: The patient was brought back to the operating room and MAC anesthesia was induced. The abdomen was prepped and draped in usual sterile fashion. The prior supraumbilical incision was anesthetized with Marcaine. It was incised using a scalpel and there was hematoma under pressure under the skin. The skin was thickened anteriorly. The hematoma was evacuated and suctioned dry. The cavity was irrigated and cautery was used to cauterize the hematoma wall and there was no oozing. A deep 2-0 Vicryl suture was placed in the subcutaneous tissue to reapproximate the cavity. The skin was closed with interrupted 4-0 nylon sutures and a bandage was placed. Patient tolerated the procedure well. - Admit VTE Documentation VTE Mechan Device Prophylaxis: SCD's
--- NOTE | 2019-07-03 11:13 | DCINST_ITS ---
You will use the following diet at home:: No restrictions, Regular Discharge Activity: No Restrictions Call your doctor if your incision/area has: Continuous Slow Oozing, Sudden Increased Bleeding, Increased Pain/ Swelling, Increased Redness, Foul Smelling Discharge, Swelling at the incision site Call your doctor if you observe: Fever of 101 or Higher Remove Dressing in (days):: 2 Additional Dressing/Incision Instructions:: warm compresses as needed Allergies/Adverse Reactions: Allergies No Known Allergies Allergy (Verified 07/03/19 09:28) Medications to take at Discharge Amoxicillin/Potassium Clav [Augmentin 875-125 Tablet] 1 ea PO BID 5 Days #10 tab 06/27/19 Primary Care Physician: Care Physician,No Primary [Primary Care Provider] - Test Results: Test results from this visit will be discussed in further detail at your follow- up appointment, if applicable. Please Follow Up With: Misael Grant MD When: 1 month as scheduled
== END 2019-07-03 12:52 | disposition home or self-care (01) ==
LOC: SDC 09:16 → AC 09:18
PROVIDERS: Anesthesiology; Referring Provider Surgery; Visit Provider Surgery
PROC: (CPT 10140; principal; 2019-07-03 10:30)
DX: L76.32 Postprocedural hematoma of skin and subcutaneous tissue following other procedure (principal)
CPT/HCPCS: 10140; 81025; J7120; J2405

== ENCOUNTER 2019-07-10 10:09 | Observation (INO) | payer OTHER, SELFPAY ==
[2019-07-03 09:37] VITALS: BMI 21.7
[2019-07-10 10:10] VITALS: BP 111/73; PULSE 99; RESP 18; TEMP 36.6; O2SAT 97; BMI 21.7
--- NOTE | 2019-07-10 10:20 | CT_ITS ---
We are attempting to reach an attending provider to discuss findings. An addendum with communication details will be sent when the communication is complete. STUDY: CT ABDOMEN AND PELVIS WITH CONTRAST REASON FOR EXAM: Female, 19 years old. Epigastric pain. Status post laparoscopic cholecystectomy. Pancreatitis. RADIATION DOSAGE (If Supplied By Facility): CTDIvol = ( 8.33 ) mGy, DLP = ( 320.18 ) mGycm TECHNIQUE: Transaxial images were obtained from the dome of the diaphragm to the symphysis pubis with oral contrast. Oral and amp; IV Gastrografin and amp; 100mL Isovue-300 100 was administered. Sagittal and coronal images were reconstructed. Individualized dose optimization techniques were used for this CT. COMPARISON: September 23, 2019. FINDINGS: Lung bases: Resolved pleural effusions. No acute process. Heart: Unremarkable. Liver: No focal hepatic lesions. Portal vein patent. Gallbladder/biliary ducts: Status post cholecystectomy. Stable mild high attenuation with inflammatory changes at the region of the gallbladder fossa. Minimally dilated biliary ducts likely related to recent cholecystectomy. Pancreas: Minimal edema surrounds the pancreatic bed. Mild homogeneous slightly edematous appearance of the pancreas. No pseudocyst. No pancreatic ductal dilatation. No pancreatic necrosis. Spleen: Unremarkable. Adrenal glands: Unremarkable. Kidneys/ureters/bladder: Unremarkable. Uterus/adnexa: Edematous appearance of the uterus and adnexal regions (axial images 88 through 98 series 2). Edematous appearance of the cervix and vaginal vault. Large bowel/small bowel: Minimal presacral/perirectal inflammatory changes without significant bowel wall thickening (axial image 13 series 2). No perforation. No obstruction. No pneumatosis. Appendix: Unremarkable (axial image 88 series 2). Gastroesophageal junction/stomach: Normal contrast distended stomach. Retroperitoneum/lymph nodes: No intra-abdominal free air. No ascites. No pathologically enlarged lymph nodes. Vascular: Unremarkable. Osseous structures: Unremarkable. Subcutaneous/soft tissues: Small fat-containing ventral hernia. Soft tissue swelling with residual gas at the anterior abdominal wall (axial image 53 series 2) with skin blisters/abscess (sagittal image 73 series 602). Region of interest measures approximately 7 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
[2019-07-10] MEDS: 0.9% Normal Saline 1,000 ML 1000 ML IV (10:30)
[2019-07-10] MEDS: Morphine 4 MG/ML Syringe IV ×2 (10:31→13:43)
[2019-07-10] MEDS: Ondansetron 4 MG/2 ML Vial IV ×2 (10:31→13:43)
[2019-07-10 10:45] LABS: Absolute Lymphocyte Count 1.69 X10^3/uL (0.83-4.51); Basophil# 0.05 X10^3/uL; Basophil% 0.3 % (0-1); Eosinophil# 0.06 X10^3/uL; Eosinophils% 0.4 % (0-5); Hematocrit 39.3 % (37-47); Hemoglobin 13.1 g/dL (12.0-15.0); Lymphocyte # 1.69 X10^3/ul (4.0); Lymphocyte % 10.7 % (19-41); Mean Corp Hgb Conc 33.3 g/dL (32-36); Mean Corpuscular Volume 86.9 fL (81-99); Mean Platelet Vol. 9.5 fl (6.2-12.0); Monocyte# 0.87 X10^3/uL; Monocyte% 5.5 % (0-10); NRBC Flagged by Analyzer 0 % (0-5); Neutrophil # 13.03 X10^3/uL (2.7-7.7); Neutrophil % 82.7 % (47-70); Platelet Count 402 K/mm3 (150-450); RBC Distribution Width CV 15.4 % (11.6-14.6); RBC Distribution Width SD 48.8 fl (35.1-43.9); Red Blood Count 4.52 M/mm3 (4.2-5.4); White Blood Count 15.8 K/mm3 (4.4-11.0)
[2019-07-10 11:05] LABS: ALB/GLOB Ratio 0.9 RATIO (0.9-2.4); AST(SGOT) 16 U/L (15-37); Alanine Aminotransfer ALT/SGPT 22 U/L (13-56); Alkaline Phosphatase 180 U/L (45-117); Anion Gap 8 (5-15); BUN 11 mg/dL (7-18); BUN/Creat Ratio 15.5 RATIO (10-20); Calcium,Total 9.7 mg/dL (8.5-10.1); Chloride 106 mmol/L (98-107); Creatinine, Serum 0.71 mg/dL (0.55-1.02); EST Glomerular Filtration Rate 110 mL/min (>60); Est Glom Filt Rate - Afr Amer 133 mL/min (>60); Estimated Creatinine Clearance 94.58 ml/min; Globulin 4.3 g/dL (2.2-4.2); Glucose 95 mg/dL (74-106); Lipase 378 U/L (73-393); Protein, Total 8.3 g/dL (6.4-8.2); Sodium Level 140 mmol/L (136-145)
[2019-07-10 11:17] LABS: Internal QC Validated? YES +Cl - CLEAR BKGD; Pregnancy, Serum, hCG Quali. NEGATIVE Negative
--- NOTE | 2019-07-10 13:00 | HP.PCM_ITS ---
Problem List (1) Abdominal pain with vomiting Status: Acute History of Present Illness Date of Admission: 07/10/19 The patient is a 19 year old F who had ERCP complicated by post ERCP pancreatitis. She was discharged home and had been tolerating a diet. She reports that 3 days ago she began to have epigastric pain with nausea and vomiting. She feels very dehydrated today. She also still is complaining of blood in her urine. She is not complaining of any lower abdominal pain. She had been tolerating a diet before this. Past Medical History Medical History: Medical History (Last Reviewed 07/10/19 @ 10:12 by Alpa Smith) Hyperbilirubinemia (Acute) E80.6 Transaminitis (Acute) R74.0 Acute obstructive cholangitis (Acute) K83.09 Allergies No Known Allergies Allergy (Verified 07/10/19 10:13) Home Medications: Ambulatory Orders Medication Instructions Recorded NK 07/10/19 Surgical History: Surgical History (Last Reviewed 07/10/19 @ 10:12 by Alpa Smith) delivery delivered (Acute) O82 Surgical History: cholecystectomy, - - section Psychiatric History: No pertinent psych hx Smoking Status: Never smoker - *Family History Maternal History Items: No pertinent history Paternal History Items: No pertinent history Review of Systems Constitutional: Reports: Anorexia. Denies: Chills, Fever HEENT: Denies: Difficulty Swallowing Cardiovascular: Denies: Chest Pain Respiratory: Denies: Cough, Shortness of Breath Gastrointestinal: Reports: Abdominal Pain - Epigastric, Nausea, Vomiting. Denies: Diarrhea, Hematemesis, Hematochezia Skin: Denies: Dryness Neurological: Denies: Balance problems VTE Information - Inpt Only VTE Present on Admission: No VTE Mechan Device Prophylaxis: SCD's Patient Problems: Active and Suspected Problems (Last Reviewed 07/10/19 @ 10:12 by Alpa Smith) Abdominal pain with vomiting (Acute) - Physical Exam General: Alert, Oriented x3 Lungs: Normal air movement Abdomen: Soft, Non-Distended, Tender - Tender in the epigastric region Extremities: No clubbing Neurological: Cranial nerves II-XII grossly intact Psych/Mental Status: Normal Affect Vital Signs Temp Pulse Resp BP Pulse Ox 98 F 99 18 111/73 97 07/10/19 10:10 07/10/19 10:10 07/10/19 10:10 07/10/19 10:10 07/10/19 10:10 Oxygen Delivery Method Room Air Weight: 115 lb Body Mass Index (BMI) 21.7 Intake and Output for Last 24 Hours 07/08/19 07/09/19 07/10/19 23:59 23:59 23:59 Intake Total 1000 / 1000 Balance 1000 / 1000 Laboratory Tests Past 24 Hrs 07/10/19 07/10/19 07/10/19 10:30 10:30 10:30 WBC 15.8 H RBC 4.52 Hgb 13.1 Hct 39.3 MCV 86.9 MCH 29.0 MCHC 33.3 RDW Std Deviation 48.8 H RDW Coeff of Christine 15.4 H Plt Count 402 MPV 9.5 Immature Gran % (Auto) 0.400 Neut % (Auto) 82.7 H Lymph % (Auto) 10.7 L [place] % (Auto) 5.5 Eos % (Auto) 0.4 Baso % (Auto) 0.3 Absolute Neuts (auto) 13.0 H Absolute Lymphs (auto) 1.69 Nucleated RBC % 0 Sodium 140 Potassium 4.0 Chloride 106 Carbon Dioxide 26.0 Anion Gap 8 BUN 11 Creatinine 0.71 Estim Creat Clear Calc 94.58 Est GFR (MDRD) Af Amer 133 Est GFR (MDRD) Non-Af 110 BUN/Creatinine Ratio 15.5 Glucose 95 Calcium 9.7 Total Bilirubin 0.80 AST 16 ALT 22 Alkaline Phosphatase 180 H Total Protein 8.3 H Albumin 4.0 Globulin 4.3 H Albumin/Globulin Ratio 0.9 Lipase 378 Serum , Qual NEGATIVE Clinical Impression(s) from Imaging Studies Abdomen/Pelvis CT 07/10/19 10:20 IMPRESSION: Ventral skin surface tiny skin blister/abscess with inflammatory changes (no discrete drainable collection) Mild homogeneous pancreatic parenchymal edema without pseudocyst or dilated pancreatic duct (correlate amylase/lipase levels) Stable high attenuation/inflammatory changes of the gallbladder fossa (likely stable small postsurgical hematoma/resolving postsurgical changes) Minimal nonspecific perirectal inflammatory changes 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 (correlate cycle timing and consider follow-up ultrasound as clinically necessary) Electronically Signed: Rajeev Peters DO at 12:54 EDT Tel , Service support , Assessment/Plan All Active Problems (Last Reviewed 07/10/19 @ 10:12 by Alpa Smith) Abdominal pain with vomiting (Acute) Postprocedural hematoma of abdominal wall (Acute) Hematoma of abdominal wall (Acute) History of ERCP (Acute) History of cholecystectomy (Acute) Right sided abdominal pain (Acute) Hyperbilirubinemia (Acute) Transaminitis (Acute) Acute obstructive cholangitis (Acute) Acute cholecystitis (Acute) Obstructive jaundice (Acute) delivery delivered (Acute) 39 weeks gestation of (Acute) SROM (spontaneous rupture of membranes) (Acute) 40 weeks gestation of (Acute) 19-year-old female with epigastric pain and nausea and vomiting 1. Patient has CT scan which did not show much in the way of pathology in the upper abdomen. The patient had a normal lipase as well. Her LFTs are normal as well. She has a small resolving hematoma in the gallbladder fossa. The patient does have elevated WBC but she had elevated WBC on several other occasions and this may be a stress response. No signs of abscess on CT. She may be having bile reflux with gastritis. I will admit patient for short-term observation and start her on a PPI as well as Carafate. She may have diet as tolerated. IV fluids for rehydration. If she starts tolerating a diet and pain resolved she will be discharged home. Misael Grant MD Pager: [facility] [address] [place] [address], [address] [place] [address] Office:
--- NOTE | 2019-07-10 13:05 | ED.VISSUMM ---
- ER Visit Summary Date of Service: 07/10/19 Chief Complaint: Abdominal pain History of Present Illness: The patient is a 19 F with upper abdominal pain for several days. Patient is postop lap cholecystectomy by Dr. Grant and also history of pancreatitis. Presents with abdominal pain, nausea, vomiting since Tuesday. She also reports subjective fevers. Physical Examination: Afebrile and vital signs unremarkable. Heart regular. Lungs clear. Abdomen tender in the upper hemiabdomen. No guarding or rebound. Skin appears normal. Test Results: White count 15.8. CMP unremarkable, stable. Lipase 378, decreased, hCG negative. CT showed postoperative changes, mostly stable. The pancreas appears improved. 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 Patient notes she is on her menstrual period. Emergency Department Course and Treatment: Patient treated with fluids, morphine, Zofran. Labs, imaging as above. Patient was evaluated by Dr. Grant who will admit for observation. Treatment Plan: As above Disposition: Observation Impression: 1. Abdominal pain This note was generated with [employer] dictation software. It may contain incorrect words, spelling, and punctuation that were not noted in review of the chart prior to signing ED Disposition - Plan for ED Patient: Referrals: Care Physician,No Primary [Primary Care Provider] -
[2019-07-10 13:43] VITALS: BP 91/57; PULSE 86; RESP 16; O2SAT 95
[2019-07-10 14:20] VITALS: BMI 21.5
[2019-07-10] MEDS: 0.9% Normal Saline 1,000 ML 100 ML IV (14:28)
[2019-07-10] MEDS: 0.9% NaCl Peripheral Flush Adult/Peds IV (14:28)
[2019-07-10 14:29] VITALS: BMI 21.6
[2019-07-10 14:33] VITALS: BP 101/62; PULSE 98; RESP 16; TEMP 36.7; O2SAT 98
[2019-07-10] MEDS: Sucralfate 1 GM Tablet PO ×2 (14:44→21:28)
[2019-07-10 21:15] VITALS: BP 95/48; PULSE 75; RESP 16; TEMP 36.9; O2SAT 97
[2019-07-11] MEDS: 0.9% Normal Saline 1,000 ML 100 ML IV (00:56)
[2019-07-11 02:42] VITALS: BP 93/57; PULSE 72; RESP 16; TEMP 36.4; O2SAT 98
[2019-07-11 05:51] LABS: Absolute Lymphocyte Count 1.52 X10^3/uL (0.83-4.51); Basophil# 0.05 X10^3/uL; Basophil% 0.8 % (0-1); Eosinophil# 0.09 X10^3/uL; Eosinophils% 1.4 % (0-5); Hematocrit 32.2 % (37-47); Hemoglobin 10.6 g/dL (12.0-15.0); Lymphocyte # 1.52 X10^3/ul (4.0); Lymphocyte % 24.4 % (19-41); Mean Corp Hgb Conc 32.9 g/dL (32-36); Mean Corpuscular Hgb 28.9 pg (27.0-32.0); Mean Corpuscular Volume 87.7 fL (81-99); Mean Platelet Vol. 9.8 fl (6.2-12.0); Monocyte# 0.59 X10^3/uL; Monocyte% 9.5 % (0-10); NRBC Flagged by Analyzer 0 % (0-5); Neutrophil # 3.95 X10^3/uL (2.7-7.7); Neutrophil % 63.6 % (47-70); Platelet Count 258 K/mm3 (150-450); RBC Distribution Width CV 14.9 % (11.6-14.6); RBC Distribution Width SD 47.8 fl (35.1-43.9); Red Blood Count 3.67 M/mm3 (4.2-5.4); White Blood Count 6.2 K/mm3 (4.4-11.0)
[2019-07-11] MEDS: Sucralfate 1 GM Tablet PO (06:17)
--- NOTE | 2019-07-11 08:24 | PN.SURG_ITS ---
Patient Problems: Active and Suspected Problems (Last Reviewed 07/10/19 @ 10:12 by Alpa Smith) Abdominal pain with vomiting (Acute) Subjective: Patient tolerated diet with minimal abdominal pain. No nausea or vomiting. She reports passing flatus. - Physical Exam General: Alert, Oriented x3 Lungs: Normal air movement Cardiovascular: Regular rate, Regular Rhythm Abdomen: Soft, Non Tender, Non-Distended Vital Signs Temp Pulse Resp BP Pulse Ox 97.5 F L 72 16 93/57 L 98 07/11/19 02:42 07/11/19 02:42 07/11/19 02:42 07/11/19 02:42 07/11/19 02:42 Oxygen Delivery Method Room Air Weight: 114 lb 1.6 oz Body Mass Index (BMI) 21.5 Intake and Output for Last 24 Hours 07/09/19 07/10/19 07/11/19 23:59 23:59 23:59 Intake Total 2099.99 / 2099.99 906.67 / 906.67 Balance 2099.99 / 2099.99 906.67 / 906.67 Laboratory Tests Past 24 Hrs 07/10/19 07/10/19 07/10/19 10:30 10:30 10:30 WBC 15.8 H RBC 4.52 Hgb 13.1 Hct 39.3 MCV 86.9 MCH 29.0 MCHC 33.3 RDW Std Deviation 48.8 H RDW Coeff of Christine 15.4 H Plt Count 402 MPV 9.5 Immature Gran % (Auto) 0.400 Neut % (Auto) 82.7 H Lymph % (Auto) 10.7 L [place] % (Auto) 5.5 Eos % (Auto) 0.4 Baso % (Auto) 0.3 Absolute Neuts (auto) 13.0 H Absolute Lymphs (auto) 1.69 Nucleated RBC % 0 Sodium 140 Potassium 4.0 Chloride 106 Carbon Dioxide 26.0 Anion Gap 8 BUN 11 Creatinine 0.71 Estim Creat Clear Calc 94.58 Est GFR (MDRD) Af Amer 133 Est GFR (MDRD) Non-Af 110 BUN/Creatinine Ratio 15.5 Glucose 95 Calcium 9.7 Total Bilirubin 0.80 AST 16 ALT 22 Alkaline Phosphatase 180 H Total Protein 8.3 H Albumin 4.0 Globulin 4.3 H Albumin/Globulin Ratio 0.9 Lipase 378 Serum , Qual NEGATIVE 07/11/19 05:25 WBC 6.2 RBC 3.67 L Hgb 10.6 L Hct 32.2 L MCV 87.7 MCH 28.9 MCHC 32.9 RDW Std Deviation 47.8 H RDW Coeff of Christine 14.9 H Plt Count 258 MPV 9.8 Immature Gran % (Auto) 0.300 Neut % (Auto) 63.6 Lymph % (Auto) 24.4 Gillespie % (Auto) 9.5 Eos % (Auto) 1.4 Baso % (Auto) 0.8 Absolute Neuts (auto) 4.0 Absolute Lymphs (auto) 1.52 Nucleated RBC % 0 Sodium Potassium Chloride Carbon Dioxide Anion Gap BUN Creatinine Estim Creat Clear Calc Est GFR (MDRD) Af Amer Est GFR (MDRD) Non-Af BUN/Creatinine Ratio Glucose Calcium Total Bilirubin AST ALT Alkaline Phosphatase Total Protein Albumin Globulin Albumin/Globulin Ratio Lipase Serum , Qual Medical Necessity - Tobacco Use Smoking Status: Never smoker Assessment/Plan All Active Problems (Last Reviewed 07/10/19 @ 10:12 by Alpa Smith) Abdominal pain with vomiting (Acute) Postprocedural hematoma of abdominal wall (Acute) Hematoma of abdominal wall (Acute) History of ERCP (Acute) History of cholecystectomy (Acute) Right sided abdominal pain (Acute) Hyperbilirubinemia (Acute) Transaminitis (Acute) Acute obstructive cholangitis (Acute) Acute cholecystitis (Acute) Obstructive jaundice (Acute) delivery delivered (Acute) 39 weeks gestation of (Acute) SROM (spontaneous rupture of membranes) (Acute) 40 weeks gestation of (Acute) 19-year-old female with abdominal pain 1. Patient is doing much better today and her abdominal exam is improved. She tolerated a regular diet with no nausea or vomiting. She has no fevers. Her white count is normal today. 2. The abdominal pain may be due to bile reflux. On CT scan her pancreas was not impressive and her lipase was within normal limits. I recommend that she be discharged on a PPI and Carafate and continue diet as tolerated. She will follow-up with me. Misael Grant MD Pager: [facility] [address] [place] [address], [address] [place] [address] Office:
--- NOTE | 2019-07-11 08:25 | DCINST_ITS ---
- Discharge Diagnoses Current Active Problems: Current Active and Chronic Problems (Last Reviewed 07/10/19 @ 10:12 by Alpa Smith) Abdominal pain with vomiting (Acute) You will use the following diet at home:: Regular - low fat Discharge Activity: No Restrictions Call your doctor if you observe: Fever of 101 or Higher Allergies/Adverse Reactions: Allergies No Known Allergies Allergy (Verified 07/10/19 10:13) Medications to take at Discharge Norethindrone 0.35 mg PO DAILY 07/10/19 No122/Iron/Folic Acid [ Multi Tablet] 1 ea PO DAILY 07/10/19 Omeprazole 20 mg PO DAILY #60 tablet. 07/11/19 Sucralfate [Carafate] 1 gm PO 1HR_ACHS 30 Days #120 tab 07/11/19 The following prescriptions were given: Sucralfate [Carafate] 1 gm PO 1HR_ACHS 30 Days #120 tab Transmission Status: Sent to [facility] Omeprazole 20 mg PO DAILY #60 tablet. Transmission Status: Pending to [facility] Primary Care Physician: Care Physician,No Primary [Primary Care Provider] - Test Results: Test results from this visit will be discussed in further detail at your follow- up appointment, if applicable. Please Follow Up With: Misael Grant MD When: Call to make 2 week follow up [phone]
[2019-07-11 09:04] VITALS: BP 98/51; PULSE 68; RESP 18; TEMP 36.4; O2SAT 98
== END 2019-07-11 09:00 | disposition home or self-care (01) ==
LOC: ED 10:26 → MS2 13:26
PROVIDERS: Admitting Provider Surgery; Emergency Provider Emergency Medicine; Referring Provider Surgery; Visit Provider Surgery
DX: R10.11 Right upper quadrant pain (principal); R11.2 Nausea with vomiting, unspecified
CPT/HCPCS: 36415; 74177; 80053; 83690; 84703; 85025; 96361; 96365; 96366; 96375; 96376; 99218; 99284; J7030; Q9967; A4216; G0378; J2405

== ENCOUNTER 2022-08-20 20:16 | Emergency (ER) | payer SELFPAY ==
[2022-08-20 20:17] VITALS: BP 121/71; PULSE 129; RESP 19; TEMP 37.7; O2SAT 97; BMI 25.4
--- NOTE | 2022-08-20 20:25 | EDS_ITS ---
HPI HPI - URI History of Present Illness Chief Complaint: Sore Throat Detail of Chief Complaint: Sore throat Informant: patient Onset/Context/Timing Onset: Days (Onset August 16) Context: Sudden Onset Timing: Continuous Quality: Throat pain difficulty opening her mouth Current Severity: Moderate Maximum Severity: Severe Worsened by: Swallowing, Eating Solids and Drinking Liquids Relieved by: Not Relieved By Tylenol or NSAIDs Associated Symptoms Associated Symptoms: Positive for Myalgias; Negative for Nasal Congestion, Headache, Sinus Pressure, Nausea, Vomiting, Diarrhea, Shortness of Breath, Chest Pain or Nonproductive cough Narrative Narrative: Patient is a 22-year-old woman who presents with sore throat that started August 16. She states it is gotten worse. She writes because it hurts to talk. She has difficulty opening her mouth completely. She prefers to expectorate her saliva versus swallowing because of pain. She has had fever. She denies joint swelling. She does complain of muscle aches. She denies history of medic fever, heart murmur, mitral valve prolapse or SBE. She is on no immunosuppressive meds. Prior similar symptoms: No Recent Illness/Hospitalization: No ROS ROS ED Constitutional Constitutional ED: Reports fever(s); Denies chills, subjective or sweats Eyes Eyes: Denies blurry vision, change in vision or diplopia ENT ENT ED: Reports sore throat; Denies ear pain or rhinorrhea Cardiovascular Cardiovascular: Denies chest pain or palpitations Respiratory/Chest Respiratory/Chest: Denies cough, dyspnea or dyspnea on exertion Gastrointestinal Gastrointestinal: Denies abdominal pain, nausea or vomiting Genitourinary Genitourinary ED: Denies dysuria, hematuria or urinary frequency Musculoskeletal Musculoskeletal: Reports myalgias; Denies arthralgias, back pain or neck pain Integumentary Denies abscess, Abrasions or rash Neurologic Neurologic: Denies headache(s) Hematologic/Lymphatic Hematologic/Lymphatic: Denies easy bleeding or easy bruising [facility] Medical History (Updated 08/20/22 @ 20:[address] Charly Benton MD) Acute obstructive cholangitis Hyperbilirubinemia Transaminitis Home Medications amoxicillin 875 mg-potassium clavulanate 125 mg tablet 875 mg PO Q12H #20 TABLETS 08/20/22 [Rx Last Taken Unknown] Allergy/AdvReac Type Severity Reaction Status Date / Time No Known Allergies Allergy Verified 08/20/22 20:19 Surgical History delivery delivered Social History (Updated 08/20/22 @ 20:[address] Charly Benton MD) household members: spouse and children Smoking Status: Never smoker substance use type: does not use EXAM Physical Exam Const Vital Signs: 08/20/22 20:17 Temperature 99.9 F H Temperature Source Temporal Pulse Rate 129 H Respiratory Rate 19 H Blood Pressure 121/71 H Blood Pressure Mean 87 Pulse Ox 97 Oxygen Delivery Method Room Air Positive well nourished and well developed Constitutional Narrative: Patient appears uncomfortable. She prefers not to swallow. She can swallow but it hurts. General Appearance ED: well developed; Negative for cyanotic, diaphoretic or pallor HEENT Reports moist mucous membranes HEENT Narrative: Uvula is slightly displaced to the right. There is evidence of peritonsillar abscess on the left. There is slight trismus. There is no evidence of angioedema. normocephalic and atraumatic Throat: tonsils abnormal and posterior oropharynx abnormal Eyes PERRL and EOMs intact bilaterally General Eye ED: Negative for pale conjunctiva or scleral icterus Neck no lymphadenopathy, supple, no meningeal signs and no JVD Resp normal respiratory effort and clear to auscultation bilaterally Cardio S1 normal heart sound, S2 normal heart sound and no murmurs Rate: tachycardic Rhythm: regular rhythm Back/Spine no CVA tenderness Cervical Spine: Negative for cervical spine tenderness Thoracic Spine / Upper Back: Negative for thoracic spinal tenderness Lumbar Spine / Lower Back: Negative for lumbar spinal tenderness Extremity normal to inspection and full ROM General Extremety ED: Negative for cyanosis General Extremity: Negative for cyanosis Neuro oriented x3, CN's II-XII intact bilaterally and no sensory deficits noted Sensorium / Orientation: alert Psych mental status grossly normal Skin General Skin Exam: Negative for jaundice or pallor Lesions: no lesions Rashes: no rashes MDM MDM MDM Narrative Medical decision making narrative: Frontal diagnosis is viral pharyngitis, strep pharyngitis and after examining patient she has evidence of a peritonsillar abscess. Plan is anesthetized with viscous Xylocaine and needle aspirate of the left peritonsillar abscess. Since she has no allergy to antibiotics we will treat with Augmentin and refer to ENT. Patient was treated with Augmentin. She was referred to ENT, Dr. Terrazas/Diogenes Casanova Procedures Other Procedures Procedure(s): Aspirate of peritonsillar abscess. 4.5 cc of thick green purulent material was aspirated. Discharge Plan Triage Chief Complaint: Sore Throat ED Provider: Charly Benton Dx/Rx/DC Orders Clinical Impression: Abscess, peritonsillar, Sinus tachycardia, Fever Instructions: ED Peritonsillar Abscess Prescriptions: New amoxicillin-pot clavulanate [amoxicillin-pot clavulanate] 875-125 mg tablet 875 mg PO Q12H Qty: 20 0RF Primary Care Provider: Care Physician,No Primary Referrals: Mando Johnson MD [Med Staff - Active Staff] - 3-5 Days Care Physician,No Primary [Primary Care Provider] - Disposition Disposition: Home, Self Care
[2022-08-20] MEDS: Amox/Clavulanate 875 MG Tablet PO (20:59)
== END 2022-08-20 20:59 | disposition home or self-care (01) ==
PROVIDERS: Emergency Provider Emergency Medicine; Visit Provider Emergency Medicine
DX: J36 Peritonsillar abscess (principal); R00.0 Tachycardia, unspecified; R50.9 Fever, unspecified
CPT/HCPCS: 99283